=== PATIENT | female | born 1955 | race Caucasian/White ===

== ENCOUNTER 2018-06-08 08:10 | Emergency (ER) | payer OTHER, SELFPAY ==
[2018-06-08 08:13] VITALS: BP 112/47; PULSE 86; RESP 18; TEMP 36.4; O2SAT 99
--- NOTE | 2018-06-08 08:26 | W.ED.GENAD ---
Discharge Plan Disposition Patient Disposition: HOME Condition: Good Discharge Details Chief Complaint: EarProblem Clinical Impression: Acute otitis externa of left ear Primary Care Provider: Ann Chu ED Provider: Damien Shafer Home Meds and New Rx's Prescriptions: New ciprofloxacin-hydrocortisone [Cipro HC] 0.2-1 % drops,suspension 3 drp OT BID Qty: 10 RF: 0 Continue sumatriptan succinate 25 mg tablet 25 mg PO as directed Qty: 12 RF: 2 tolterodine 2 mg capsule,extended release 24hr 2 mg PO DAILY Qty: 30 RF: 4 calcium carbonate-vitamin D3 1 EACH capsule 1 ea PO BID RF: 0 glucosamine [id number] 1 EACH tablet 1 ea PO BID RF: 0 olopatadine [Pataday] 0.2 % drops 1 drp Ophthalmic BID PRNRF: 0 ibuprofen 200 MG tablet 2 cap PO PRN PRNRF: 0 cholecalciferol (vit D3)(bulk) 1,000 GM liquid 1,000 gm Miscellaneous DAILY RF: 0 magnesium 250 MG tablet 250 mg PO DAILY RF: 0 Discharge Instructions Instructions: Otitis Externa (ED) Discharge Data Discharge Physician: Damien Shafer Medical Decision Making Patient comes in with left ear pain and was prescribed abx amoxicillin last week at urgent care and despite this still has discomfort. No fevers, no pain or redness or warmth or swelling over the left mastoid. She is a swimmer. HAs normal exam on the right, normal tm on the left but external auditory is swollen and has pain on exam. Will start antibiotic drops and advised f/u with pcp. No evidence of mastoiditis Differential Diagnosis otitis externa, aom HPI General Mode of arrival: ambulatory. Date/Time Provider Initiated Documentation: 06/08/18 08:22. Limitations to Documentation: no limitations. History of Present Illness 62 year old F presents to the emergency department with the chief complaint of left ear pain, described as moderate, with intensity rated at 5. Quality is described as aching, Patient reports no radiation. Patient started experiencing this week(s) (1) and it has been constant. No relieving factors improve symptom(s), No exacerbating factors reported . Patient notes no other symptoms.. Related Data Home Medications Medication Instructions Recorded Confirmed ibuprofen 2 cap PO PRN PRN 05/29/13 06/08/18 calcium carbonate-vitamin D3 1 ea PO BID 03/20/16 06/08/18 glucosamine [id number] 1 ea PO BID 03/20/16 06/08/18 cholecalciferol (vit D3)(bulk) 1,000 gm MISCELLANEOUS DAILY 04/24/16 06/08/18 magnesium 250 mg PO DAILY 04/18/17 06/08/18 olopatadine 0.2 % eye drops 1 drp OPHTHALMIC BID PRN drp 05/20/18 06/08/18 sumatriptan 25 mg tablet 25 mg PO as directed #12 tab-cap 05/20/18 06/08/18 tolterodine ER 2 mg 2 mg PO DAILY #30 cap 05/20/18 06/08/18 capsule,extended release 24 hr ciprofloxacin-hydrocortisone 3 drp OT BID #10 ml 06/08/18 [Cipro HC] Previous Rx's Medication Instructions Recorded sumatriptan 25 mg tablet 25 mg PO as directed #12 tab-cap 05/20/18 tolterodine ER 2 mg 2 mg PO DAILY #30 cap 05/20/18 capsule,extended release 24 hr ciprofloxacin-hydrocortisone 3 drp OT BID #10 ml 06/08/18 [Cipro HC] Allergies Allergy/AdvReac Type Severity Reaction Status Date / Time alcohol Allergy Unknown Unverified 06/08/18 08:23 General Stated Complaint: EarProblem GAEL: 4 Review of Systems Review of Systems All systems reviewed & are unremarkable except as noted in HPI and below Constitutional Denies chills, Denies fever(s) and Denies weakness Eyes Denies loss of vision ENT Denies change in voice Cardiovascular Denies chest pain and Denies dyspnea Respiratory Denies dyspnea Gastrointestinal Denies abdominal pain, Denies nausea and Denies vomiting Genitourinary Denies dysuria Musculoskeletal Denies joint swelling Integumentary/Breasts Denies rash Neurologic Denies loss of vision and Denies weakness Psychiatric Denies depression PFSH Family History Mother Essential hypertension Heart disease Hyperlipidemia Father Essential hypertension Heart disease Diabetes Skin cancer Sister Skin cancer Sister Skin cancer Maternal Grandfather Heart disease Paternal Grandfather Heart disease Maternal Grandmother Heart disease Paternal Grandmother Liver cancer FAMILY HISTORY Osteoporosis Heart disease Daughter No problems noted. Daughter No problems noted. Medical History Cellulitis of both lower extremities Ocular herpes Urinary incontinence Social History household members: spouse current occupational status: employed 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 frequency: daily duration: 30-45 minutes/day Smoking/Tobacco Use Status: Never alcohol intake: never substance use type: does not use saúl/baptism: JUDIAISM special saúl needs: No Surgical History Colonoscopy - MAC (04/20/17) Removal of L eye Tonsillectomy and adenoidectomy Exam Const General: no acute distress Orientation: alert HENMT Head: normal to inspection Ears: external ears normal General nose exam: external nose normal Mouth: moist mucous membranes Eyes General: appearance normal, both eyes and all related structures Neck Neck: normal visual inspection Resp Effort & Inspection: normal respiratory effort and able to speak in complete sentences Cardio Rate: regular rate Skin General skin exam: no rashes or lesions noted Neuro General: alert and oriented x3 Extrem General: normal to inspection Psych Mental Status: mental status grossly normal Course Vital Signs Temperature 36.4 C L 06/08/18 08:13 Pulse 86 06/08/18 08:13 Respiratory Rate 18 06/08/18 08:13 Blood Pressure 112/47 L 06/08/18 08:13 Pulse Oximetry 99 06/08/18 08:13 Temperature 36.4 C L 06/08/18 08:13 Temperature Source Temporal Artery Scan 06/08/18 08:13 Pulse 86 06/08/18 08:13 Respiratory Rate 18 06/08/18 08:13 Respiratory Effort Non-Labored 06/08/18 08:21 Blood Pressure 112/47 L 06/08/18 08:13 Pulse Oximetry 99 06/08/18 08:13 Oxygen Delivery Method Room Air 06/08/18 08:13 Oxygen Flow Rate 0 06/08/18 08:13 Pain Level 5 06/08/18 08:22
--- NOTE | 2018-06-08 08:30 | ED.GENADUL_ITS ---
Discharge Plan Disposition Patient Disposition: HOME Condition: Good Discharge Details Chief Complaint: EarProblem Clinical Impression: Acute otitis externa of left ear Primary Care Provider: Ann Chu ED Provider: Damien Shafer Home Meds and New Rx's Prescriptions: New ciprofloxacin-hydrocortisone [Cipro HC] 0.2-1 % drops,suspension 3 drp OT BID Qty: 10 RF: 0 Continue sumatriptan succinate 25 mg tablet 25 mg PO as directed Qty: 12 RF: 2 tolterodine 2 mg capsule,extended release 24hr 2 mg PO DAILY Qty: 30 RF: 4 calcium carbonate-vitamin D3 1 EACH capsule 1 ea PO BID RF: 0 glucosamine [id number] 1 EACH tablet 1 ea PO BID RF: 0 olopatadine [Pataday] 0.2 % drops 1 drp Ophthalmic BID PRNRF: 0 ibuprofen 200 MG tablet 2 cap PO PRN PRNRF: 0 cholecalciferol (vit D3)(bulk) 1,000 GM liquid 1,000 gm Miscellaneous DAILY RF: 0 magnesium 250 MG tablet 250 mg PO DAILY RF: 0 Discharge Instructions Instructions: Otitis Externa (ED) Discharge Data Discharge Physician: Damien Shafer Medical Decision Making Patient comes in with left ear pain and was prescribed abx amoxicillin last week at urgent care and despite this still has discomfort. No fevers, no pain or redness or warmth or swelling over the left mastoid. She is a swimmer. HAs normal exam on the right, normal tm on the left but external auditory is swollen and has pain on exam. Will start antibiotic drops and advised f/u with pcp. No evidence of mastoiditis Differential Diagnosis otitis externa, aom HPI General Mode of arrival: ambulatory . Date/Time Provider Initiated Documentation: 06/08/18 08:22 . Limitations to Documentation: no limitations . History of Present Illness 62 year old F presents to the emergency department with the chief complaint of left ear pain, described as moderate, with intensity rated at 5. Quality is described as aching, Patient reports no radiation. Patient started experiencing this week(s) (1) and it has been constant. No relieving factors improve symptom(s), No exacerbating factors reported . Patient notes no other symptoms.. Related Data Home Medications Medication Instructions Recorded Confirmed ibuprofen 2 cap PO PRN PRN 05/29/13 06/08/18 calcium carbonate-vitamin D3 1 ea PO BID 03/20/16 06/08/18 glucosamine [id number] 1 ea PO BID 03/20/16 06/08/18 cholecalciferol (vit D3)(bulk) 1,000 gm MISCELLANEOUS DAILY 04/24/16 06/08/18 magnesium 250 mg PO DAILY 04/18/17 06/08/18 olopatadine 0.2 % eye drops 1 drp OPHTHALMIC BID PRN drp 05/20/18 06/08/18 sumatriptan 25 mg tablet 25 mg PO as directed #12 tab-cap 05/20/18 06/08/18 tolterodine ER 2 mg 2 mg PO DAILY #30 cap 05/20/18 06/08/18 capsule,extended release 24 hr ciprofloxacin-hydrocortisone 3 drp OT BID #10 ml 06/08/18 [Cipro HC] Previous Rx's Medication Instructions Recorded sumatriptan 25 mg tablet 25 mg PO as directed #12 tab-cap 05/20/18 tolterodine ER 2 mg 2 mg PO DAILY #30 cap 05/20/18 capsule,extended release 24 hr ciprofloxacin-hydrocortisone 3 drp OT BID #10 ml 06/08/18 [Cipro HC] Allergies Allergy/AdvReac Type Severity Reaction Status Date / Time alcohol Allergy Unknown Unverified 06/08/18 08:23 General Stated Complaint: EarProblem GAEL: 4 Review of Systems Review of Systems All systems reviewed & are unremarkable except as noted in HPI and below Constitutional Denies chills, Denies fever(s) and Denies weakness Eyes Denies loss of vision ENT Denies change in voice Cardiovascular Denies chest pain and Denies dyspnea Respiratory Denies dyspnea Gastrointestinal Denies abdominal pain, Denies nausea and Denies vomiting Genitourinary Denies dysuria Musculoskeletal Denies joint swelling Integumentary/Breasts Denies rash Neurologic Denies loss of vision and Denies weakness Psychiatric Denies depression PFSH Family History Mother Essential hypertension Heart disease Hyperlipidemia Father Essential hypertension Heart disease Diabetes Skin cancer Sister Skin cancer Sister Skin cancer Maternal Grandfather Heart disease Paternal Grandfather Heart disease Maternal Grandmother Heart disease Paternal Grandmother Liver cancer FAMILY HISTORY Osteoporosis Heart disease Daughter No problems noted. Daughter No problems noted. Medical History Cellulitis of both lower extremities Ocular herpes Urinary incontinence Social History household members: spouse current occupational status: employed 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 frequency: daily duration: 30-45 minutes/day Smoking/Tobacco Use Status: Never alcohol intake: never substance use type: does not use saúl/adventist: JUDIAISM special saúl needs: No Surgical History Colonoscopy - MAC (04/20/17) Removal of L eye Tonsillectomy and adenoidectomy Exam Const General: no acute distress Orientation: alert HENMT Head: normal to inspection Ears: external ears normal General nose exam: external nose normal Mouth: moist mucous membranes Eyes General: appearance normal, both eyes and all related structures Neck Neck: normal visual inspection Resp Effort & Inspection: normal respiratory effort and able to speak in complete sentences Cardio Rate: regular rate Skin General skin exam: no rashes or lesions noted Neuro General: alert and oriented x3 Extrem General: normal to inspection Psych Mental Status: mental status grossly normal Course Vital Signs Temperature 36.4 C L 06/08/18 08:13 Pulse 86 06/08/18 08:13 Respiratory Rate 18 06/08/18 08:13 Blood Pressure 112/47 L 06/08/18 08:13 Pulse Oximetry 99 06/08/18 08:13 Temperature 36.4 C L 06/08/18 08:13 Temperature Source Temporal Artery Scan 06/08/18 08:13 Pulse 86 06/08/18 08:13 Respiratory Rate 18 06/08/18 08:13 Respiratory Effort Non-Labored 06/08/18 08:21 Blood Pressure 112/47 L 06/08/18 08:13 Pulse Oximetry 99 06/08/18 08:13 Oxygen Delivery Method Room Air 06/08/18 08:13 Oxygen Flow Rate 0 06/08/18 08:13 Pain Level 5 06/08/18 08:22
== END 2018-06-08 08:36 | disposition home or self-care (01) ==
PROVIDERS: Emergency Provider Emergency Medicine; PCP Family Medicine
DX: H60.392 Other infective otitis externa, left ear (principal)
CPT/HCPCS: 99283

== ENCOUNTER 2018-06-18 01:40 | Outpatient (CLI) | payer OTHER, SELFPAY ==
[2018-06-18 07:32] LABS: HCT 38.9 % (36.0-46.0); HGB 12.5 g/dL (12.0-15.5); Mean Corp. HGB Concentration 32.1 g/dL (32.0-36.0); Mean Corpuscular Hemoglobin 30.3 pg (27.0-33.0); Mean Corpuscular Volume 94.4 fL (80-95); Mean Platelet Volume 10.3 fL (8.0-11.0); Platelet Count 251 x1000/uL (130-400); RBC 4.12 m/cumm (4.00-5.20); RBC Distribution Width 12.6 % (11.7-14.6); White Blood Cell Count 5.86 k/cumm (4.4-10.8)
[2018-06-18 08:27] LABS: Iron 84 ug/dL (50-175)
[2018-06-18 08:39] LABS: ALT 19 U/L (12-78); AST 13 U/L (15-37); Albumin 3.6 g/dL (3.4-5.0); Alkaline Phosphatase 57 U/L (46-116); Anion Gap 8.6 mmol/L (3-11); BUN 13 mg/dL (7-18); Bilirubin, Total 1.1 mg/dL (0.2-1.0); CO2 29.4 mmol/L (21.0-32.0); CREATININE 0.67 mg/dL (0.55-1.02); Calcium 8.8 mg/dL (8.5-10.1); Chloride 104 mmol/L (98-107); Glucose 87 mg/dL (70-100); Potassium 3.8 mmol/L (3.5-5.1); Sodium 142 mmol/L (136-145); TSH 2.04 uIU/mL (0.358-3.74); Total Protein 6.4 g/dL (6.4-8.2)
[2018-06-19 13:07] LABS: Cholesterol 175 mg/dL (50-200); HDL Cholesterol 56 mg/dL (40-60); LDL CHOLESTEROL 115 mg/dL (<100); Triglyceride 54 mg/dL (30-150)
== END 2018-06-18 02:00 ==
PROVIDERS: PCP Family Medicine; Visit Provider Family Medicine
DX: I49.9 Cardiac arrhythmia, unspecified (principal); Z86.2 Personal history of diseases of the blood and blood-forming organs and certain disorders involving the immune mechanism; Z13.220 Encounter for screening for lipoid disorders
CPT/HCPCS: 36415; 80053; 80061; 83721; 85027; 83540; 84443

== ENCOUNTER 2018-06-25 00:42 | Outpatient (CLI) | payer OTHER, SELFPAY ==
--- NOTE | 2018-06-25 08:00 | DI.MAMMO_ITS ---
SYMPTOM/DIAGNOSIS: SCREENING, Z12.31 MAMMOGRAMS: Mammograms were interpreted according to the usual protocol including computer analysis with CAD system, tomosynthesis and C view imaging. Comparison is made with prior examinations. Breast density, category C. No suspicious masses or microcalcifications are seen. There has been no significant change compared to the prior examination. The asymmetric breast tissue in the upper outer quadrant of the right breast appears stable. The skin and axilla are unremarkable. IMPRESSION: No evidence for malignancy. Yearly mammography is recommended. Category 1. MQSA ASSESSMENT OF FINDINGS: Negative. Category 1. Patient will receive a letter notifying them of these results. Bi-RADS category C. The breasts are heterogeneously dense, which may obscure small masses.
== END 2018-06-25 01:02 ==
PROVIDERS: PCP Family Medicine; Visit Provider Family Medicine
DX: Z12.31 Encounter for screening mammogram for malignant neoplasm of breast (principal)
CPT/HCPCS: 77063; 77067

== ENCOUNTER 2018-07-16 02:05 | Outpatient (CLI) | payer OTHER, SELFPAY ==
--- NOTE | 2018-08-14 15:45 | ZIOP_ITS ---
ZIO PATCH REPORT DATE OF READING: August 14, 2018 STUDY INDICATION: Palpitations. REQUESTING PROVIDER: Patrick Rangel FINDINGS: The patient was monitored for 13 days and 20 hours. The predominant underlying rhythm was sinus rhythm. Average heart rate in sinus rhythm 76 beats per minute, range of 46-148 beats per minute. There was rare supraventricular ectopy. The patient was in atrial fibrillation for less than 1% of the time. Average heart rate in atrial fibrillation 146 beats per minute, range 100-195 beats per minute. The longest episode lasted 60 minutes and 11 seconds, with an average heart rate of 144 beats per minute. There were 28 episodes of supraventricular tachycardia most likely resembling bursts of atrial fibrillation. Average heart rate 142 beats per minute, range 79-197 beats per minute. The longest episode lasted 12 beats, with an average heart rate of 170 beats per minute. There was occasional ventricular ectopy, 1.1% PVCs. There were three ventricular runs most likely resembling atrial fibrillation with aberrancy. Average heart rate 118 beats per minute, range of 74-184 beats per minute. The longest episode lasted 7 beats, with an average heart rate of 91 beats per minute. There were no pauses greater than 3 seconds. There was no high-degree heart block. There were two patient events; both events correlated with PVCs. FINAL INTERPRETATION: Paroxysmal atrial fibrillation with rapid ventricular response, asymptomatic.
== END 2018-07-16 02:25 ==
PROVIDERS: PCP Family Medicine; Visit Provider Family Medicine
DX: R00.2 Palpitations (principal); I48.0 Paroxysmal atrial fibrillation; I47.2 Ventricular tachycardia
CPT/HCPCS: 93225

== ENCOUNTER 2018-09-11 19:30 | Emergency (ER) | payer OTHER, SELFPAY ==
[2018-09-11 19:32] VITALS: BP 127/59; PULSE 80; RESP 20; TEMP 36.5; O2SAT 99
--- NOTE | 2018-09-11 19:32 | DI.RAD_ITS ---
SYMPTOM/DIAGNOSIS: CHEST PAIN PA AND LATERAL CHEST: The heart is normal in size. The lungs are clear. The mediastinal structures and pleura appear intact. CONCLUSION: Normal chest. No evidence of acute cardiopulmonary disease.
--- NOTE | 2018-09-11 19:33 | W.ED.GENAD ---
Discharge Plan Disposition Patient Disposition: HOME Condition: Good Discharge Details Chief Complaint: Chest Pain Clinical Impression: Chest pain Primary Care Provider: Ann Chu ED Provider: Eileen Melissa Home Meds and New Rx's Prescriptions: Continued sumatriptan succinate 25 mg tablet 25 mg PO as directed Qty: 12 RF: 2 tolterodine 2 mg capsule,extended release 24hr 2 mg PO DAILY Qty: 30 RF: 4 fluticasone 50 mcg/actuation spray,suspension 2 spray AURE DAILY PRN (Reason: ear congestion) Qty: 15.8 RF: 0 calcium carbonate-vitamin D3 1 EACH capsule 1 ea PO BID RF: 0 glucosamine [id number] 1 EACH tablet 1 ea PO BID RF: 0 olopatadine [Pataday] 0.2 % drops 1 drp Ophthalmic BID PRNRF: 0 ibuprofen 200 MG tablet 2 cap PO PRN PRNRF: 0 cholecalciferol (vit D3)(bulk) 1,000 GM liquid 1,000 gm Miscellaneous DAILY RF: 0 Cipro HC 0.2-1 % drops,suspension 3 drp OT BID Qty: 10 RF: 0 magnesium 250 MG tablet 250 mg PO DAILY RF: 0 Discharge Instructions Instructions: Chest Pain (ED) Additional Instructions: Encourage hydration. Cut back on caffeine. Begin daily aspirin. Please keep upcoming appointment with primary care next week. If you develop increased chest pain, exertional chest pain, shortness of breath or other new/worsening symptoms please seek care urgently once again. Referrals: Ann Chu MD [Primary Care Provider] - Discharge Data Discharge Date/Time-TO BE ENTERED AT DEPARTURE: 09/11/18 23:53 Medical Decision Making <AUSTIN Arvizu - Last Filed: 09/12/18 08:03> Patient is a 63 year old female presenting today with c/c of chest pressure. States that this pressure has been intermittent for the past 2 days. Initially she associated this with muscle strain from yoga vs. heart burn. However, she states that now the pain does not feel like this. Also endorsing feel that heart is racing intermittently. Denies SOB. No recent illness, no fevers/chills or cough. No personal history of heart disease. She reprots she was seen by her PCP a few months ago and there was concern for murmur vs. irregular rhythm. She had an echo completed last year and finished zio patch <2 months ago. Family history of heart disease, she reports primarily concerning for atrial fibrillation. Denies radiating pain, no N/V, no abdominal pain. On exam, patient is resting comfortably, no distress walking into the department. NSR with no murmurs, rubs or gallops noted. Lungs cler. Abdomen is soft and nontender. HR 80. Patient reports she feels that she is having racing heart at this time, no abnormalities noted at this time to suggest irregular rhythm. EKG reviewed by Dr. Pedroza, she advises no acute abnormalities noted, no signs of ischemia. NSR. Reviewed results of holter: Recent results of holter monitor as interpretted by Dr. Lan: FINDINGS: The patient was monitored for 13 days and 20 hours. The predominant underlying rhythm was sinus rhythm. Average heart rate in sinus rhythm 76 beats per minute, range of 46-148 beats per minute. There was rare supraventricular ectopy. The patient was in atrial fibrillation for less than 1% of the time. Average heart rate in atrial fibrillation 146 beats per minute, range 100-195 beats per minute. The longest episode lasted 60 minutes and 11 seconds, with an average heart rate of 144 beats per minute. There were 28 episodes of supraventricular tachycardia most likely resembling bursts of atrial fibrillation. Average heart rate 142 beats per minute, range 79-197 beats per minute. The longest episode lasted 12 beats, with an average heart rate of 170 beats per minute. There was occasional ventricular ectopy, 1.1% PVCs. There were three ventricular runs most likely resembling atrial fibrillation with aberrancy. Average heart rate 118 beats per minute, range of 74-184 beats per minute. The longest episode lasted 7 beats, with an average heart rate of 91 beats per minute. There were no pauses greater than 3 seconds. There was no high-degree heart block. There were two patient events; both events correlated with PVCs. FINAL INTERPRETATION: Paroxysmal atrial fibrillation with rapid ventricular response, asymptomatic Echo dated 06/19/[address] Lan: Summary: 1. Left ventricle: The cavity size was normal. Wall thickness was normal. Systolic function was normal. The estimated ejection fraction was 55-60%. Wall motion was normal; there were no regional wall motion abnormalities. 2. Right ventricle: The cavity size was normal. Wall thickness was normal. Systolic function was normal. Discussed findings of the Holter with the patient, she reports that she has appointment with PCP next week to discuss this further. She reports that she has family history of atrial fibrillation. [id number] score 1. HAS BLED score 0. Discussed this with the patient. We discussed risks/benefits at length of anticoagulation. She was in atrial fibrillation <1% of the time she was on the monitor. At this point, she prefers no anticoagulation. She is agreement to begin ASA. Has appointment with PCP next week and will discuss this further with them at that time. Chest XR reviewed by radiologist: FINDINGS: Lungs: Unremarkable. No consolidation. Pleural space: Unremarkable. No pleural effusion. No pneumothorax. Heart/Mediastinum: Unremarkable. No cardiomegaly. Bones/joints: Degenerative changes of the bilateral a.c. joints and thoracic spine noted. No acute skeletal findings otherwise. IMPRESSION: Negative for acute thoracic pathology. Labs are reassurring, no acute abnormalities. Troponin <0.02. As pain has been intermittent, will obtain 3 hour troponin and repeat EKG at that time. At the end of my shift, care transitioned to Dr. Gamez with repeat troponin pending. Patient has appointment with PCP next week. As discussed above, if repeat troponin and EKG remain without abnromality, patient will begin daily aspirin. She will discuss repeat Holter vs. zio with primary care. She will contact primary care tomorrow to discuss current complaints. Strict return precautions given. <Darryl Gamez, DO - Last Filed: 09/11/18 23:46> EKG 22: 15 Rate 64, sinus rhythm, intervals normal, no ST elevations or depressions, no T wave inversions. No evidence of epsilon wave, delta wave, or Wellen syndrome. Normal EKG. The case was signed out to me my my colleague Eileen neely. We are pending a repeat troponin at that time. Repeat troponin has returned and is negative. Patient signs and symptoms at this time are clinically inconsistent with acs. She has no evidence of A. fib on EKG. Practitioners nicole have discussed with her potential anticoagulation and beta-jose g administration, and she is requesting to hold off on this but will be taking a daily aspirin. We discussed with the patient the importance of close follow-up with her PCP. I have extensively reviewed the treatment plan and discharge instructions with the patient and their family. I have addressed all patient concerns at this time. The patient and family was made aware of what symptoms to monitor for that would warrant a return to the emergency department. Discussed the plan with the patient and family, they demonstrate verbal understanding and agreement with our assessment and plan at this time. HPI <AUSTIN Arvizu - Last Filed: 09/12/18 08:03> General Mode of arrival: ambulatory. Date/Time Provider Initiated Documentation: 09/11/18 19:32. Limitations to Documentation: no limitations. Information obtained by: patient. History of Present Illness 63 year old F presents to the emergency department with the chief complaint of chest pressure, described as mild, Quality is described as other (pressure), and is localized to the chest. Patient reports no radiation. Patient started experiencing this day(s) (2) and it has been intermittent. other things that improve symptom(s), (distraction, such as when at work) No exacerbating factors reported . Patient notes no other symptoms.; denies cough, fever/chills, headaches, loss of appetite, nausea/vomiting, rash and shortness of breath. Patient did receive the following treatments prior to arrival, none Related Data Home Medications Medication Instructions Recorded Confirmed ibuprofen 2 cap PO PRN PRN 05/29/13 09/11/18 calcium carbonate-vitamin D3 1 ea PO BID 03/20/16 09/11/18 glucosamine [id number] 1 ea PO BID 03/20/16 09/11/18 cholecalciferol (vit D3)(bulk) 1,000 gm MISCELLANEOUS DAILY 04/24/16 09/11/18 magnesium 250 mg PO DAILY 04/18/17 09/11/18 olopatadine 0.2 % eye drops 1 drp OPHTHALMIC BID PRN drp 05/20/18 09/11/18 sumatriptan 25 mg tablet 25 mg PO as directed #12 tab-cap 05/20/18 09/11/18 tolterodine ER 2 mg 2 mg PO DAILY #30 cap 05/20/18 09/11/18 capsule,extended release 24 hr Cipro HC 3 drp OT BID #10 ml 06/08/18 09/11/18 fluticasone 50 mcg/actuation nasal 2 spray AURE DAILY PRN #15.8 gm 06/12/18 09/11/18 spray,suspension Previous Rx's Medication Instructions Recorded sumatriptan 25 mg tablet 25 mg PO as directed #12 tab-cap 05/20/18 tolterodine ER 2 mg 2 mg PO DAILY #30 cap 05/20/18 capsule,extended release 24 hr Cipro HC 3 drp OT BID #10 ml 06/08/18 fluticasone 50 mcg/actuation nasal 2 spray AURE DAILY PRN #15.8 gm 06/12/18 spray,suspension Allergies Allergy/AdvReac Type Severity Reaction Status Date / Time alcohol Allergy Unknown Unverified 09/11/18 19:54 General GAEL: 4 Review of Systems <AUSTIN Arvizu Last Filed: 09/12/18 08:03> Constitutional Reports as per HPI, Denies chills, Denies fever(s), Denies headache(s), Denies lethargy and Denies poor appetite Eyes Denies change in vision ENT Denies headache(s) Cardiovascular Reports as per HPI, Denies dyspnea and Denies dyspnea on exertion Respiratory Denies dyspnea, Denies dyspnea on exertion and Denies wheezing Gastrointestinal Reports as per HPI, Denies abdominal pain, Denies diarrhea, Denies nausea and Denies vomiting Musculoskeletal Reports as per HPI and Denies back pain Integumentary/Breasts Reports as per HPI and Denies rash Neurologic Denies headache(s) Allergic/Immunologic Denies wheezing PFSH <AUSTIN Arvizu Last Filed: 09/12/18 08:03> Surgical History Colonoscopy - [facility] (04/20/17) Removal of L eye Tonsillectomy and adenoidectomy Social History household members: spouse current occupational status: employed 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 frequency: daily duration: 30-45 minutes/day Smoking/Tobacco Use Status: Never alcohol intake: never substance use type: does not use saúl/confucianist: JUDIAISM special saúl needs: No Exam <AUSTIN Arvizu Last Filed: 09/12/18 08:03> Const General: cooperative, healthy appearing, comfortable, no acute distress and well developed Nutritional Appearance: average body habitus and well nourished Orientation: alert, awake and oriented x3 HENMT Head: normal to inspection Ears: hearing grossly normal bilaterally Mouth: moist mucous membranes Chest Chest: normal inspection of the chest, normal palpation of entire chest wall and no crepitus Resp Effort & Inspection: normal respiratory effort, able to speak in complete sentences and no respiratory distress Auscultation: clear to auscultation bilaterally, no rales, no rhonchi and no wheezes Cardio Rate: regular rate Rhythm: regular rhythm Heart Sounds: S1 normal and S2 normal GI Inspection: normal to inspection, no edema and non-distended Palpation: soft, no hepatosplenomegaly, not firm, no guarding, not rigid and nontender Auscultation: normal bowel sounds Back/Spine/Pelvis Back: no CVA tenderness Thoracic/Lumbar Spine: thoracic and lumbar spine normal to inspection Skin General skin exam: no rashes or lesions noted Trauma: no lacerations or abrasions Neuro General: alert, awake and oriented x3 Cognition: normal cognition Speech: speech normal Gait: normal gait Extrem General: normal to inspection, normal capillary refill, no pedal edema, no calf tenderness and normal gait Psych Appearance: grossly normal and well kempt Mental Status: mental status grossly normal Speech and Movement: speech and movement normal
--- NOTE | 2018-09-11 19:44 | ED.GENADUL_ITS ---
Discharge Plan Disposition Patient Disposition: HOME Condition: Good Discharge Details Chief Complaint: Chest Pain Clinical Impression: Chest pain Primary Care Provider: Ann Chu ED Provider: Eileen Melissa Home Meds and New Rx's Prescriptions: Continued sumatriptan succinate 25 mg tablet 25 mg PO as directed Qty: 12 RF: 2 tolterodine 2 mg capsule,extended release 24hr 2 mg PO DAILY Qty: 30 RF: 4 fluticasone 50 mcg/actuation spray,suspension 2 spray AURE DAILY PRN (Reason: ear congestion) Qty: 15.8 RF: 0 calcium carbonate-vitamin D3 1 EACH capsule 1 ea PO BID RF: 0 glucosamine [id number] 1 EACH tablet 1 ea PO BID RF: 0 olopatadine [Pataday] 0.2 % drops 1 drp Ophthalmic BID PRNRF: 0 ibuprofen 200 MG tablet 2 cap PO PRN PRNRF: 0 cholecalciferol (vit D3)(bulk) 1,000 GM liquid 1,000 gm Miscellaneous DAILY RF: 0 Cipro HC 0.2-1 % drops,suspension 3 drp OT BID Qty: 10 RF: 0 magnesium 250 MG tablet 250 mg PO DAILY RF: 0 Discharge Instructions Instructions: Chest Pain (ED) Additional Instructions: Encourage hydration. Cut back on caffeine. Begin daily aspirin. Please keep upcoming appointment with primary care next week. If you develop increased chest pain, exertional chest pain, shortness of breath or other new/worsening symptoms please seek care urgently once again. Referrals: Ann Chu MD [Primary Care Provider] - Discharge Data Discharge Date/Time-TO BE ENTERED AT DEPARTURE: 09/11/18 23:53 Medical Decision Making <AUSTIN Arvizu - Last Filed: 09/12/18 08:03> Patient is a 63 year old female presenting today with c/c of chest pressure. States that this pressure has been intermittent for the past 2 days. Initially she associated this with muscle strain from yoga vs. heart burn. However, she states that now the pain does not feel like this. Also endorsing feel that heart is racing intermittently. Denies SOB. No recent illness, no fevers/chills or cough. No personal history of heart disease. She reprots she was seen by her PCP a few months ago and there was concern for murmur vs. irregular rhythm. She had an echo completed last year and finished zio patch <2 months ago. Family history of heart disease, she reports primarily concerning for atrial fibrillation. Denies radiating pain, no N/V, no abdominal pain. On exam, patient is resting comfortably, no distress walking into the department. NSR with no murmurs, rubs or gallops noted. Lungs cler. Abdomen is soft and nontender. HR 80. Patient reports she feels that she is having racing heart at this time, no abnormalities noted at this time to suggest irregular rhythm. EKG reviewed by Dr. Pedroza, she advises no acute abnormalities noted, no signs of ischemia. NSR. Reviewed results of holter: Recent results of holter monitor as interpretted by Dr. Lan: FINDINGS: The patient was monitored for 13 days and 20 hours. The predominant underlying rhythm was sinus rhythm. Average heart rate in sinus rhythm 76 beats per minute, range of 46-148 beats per minute. There was rare supraventricular ectopy. The patient was in atrial fibrillation for less than 1% of the time. Average heart rate in atrial fibrillation 146 beats per minute, range 100-195 beats per minute. The longest episode lasted 60 minutes and 11 seconds, with an average heart rate of 144 beats per minute. There were 28 episodes of supraventricular tachycardia most likely resembling bursts of atrial fibrillation. Average heart rate 142 beats per minute, range 79-197 beats per minute. The longest episode lasted 12 beats, with an average heart rate of 170 beats per minute. There was occasional ventricular ectopy, 1.1% PVCs. There were three ventricular runs most likely resembling atrial fibrillation with aberrancy. Average heart rate 118 beats per minute, range of 74-184 beats per minute. The longest episode lasted 7 beats, with an average heart rate of 91 beats per minute. There were no pauses greater than 3 seconds. There was no high-degree heart block. There were two patient events; both events correlated with PVCs. FINAL INTERPRETATION: Paroxysmal atrial fibrillation with rapid ventricular response, asymptomatic Echo dated 06/19/[address] Lan: Summary: 1. Left ventricle: The cavity size was normal. Wall thickness was normal. Systolic function was normal. The estimated ejection fraction was 55-60%. Wall motion was normal; there were no regional wall motion abnormalities. 2. Right ventricle: The cavity size was normal. Wall thickness was normal. Systolic function was normal. Discussed findings of the Holter with the patient, she reports that she has appointment with PCP next week to discuss this further. She reports that she has family history of atrial fibrillation. [id number] score 1. HAS BLED score 0. Discussed this with the patient. We discussed risks/benefits at length of anticoagulation. She was in atrial fibrillation <1% of the time she was on the monitor. At this point, she prefers no anticoagulation. She is agreement to begin ASA. Has appointment with PCP next week and will discuss this further with them at that time. Chest XR reviewed by radiologist: FINDINGS: Lungs: Unremarkable. No consolidation. Pleural space: Unremarkable. No pleural effusion. No pneumothorax. Heart/Mediastinum: Unremarkable. No cardiomegaly. Bones/joints: Degenerative changes of the bilateral a.c. joints and thoracic spine noted. No acute skeletal findings otherwise. IMPRESSION: Negative for acute thoracic pathology. Labs are reassurring, no acute abnormalities. Troponin <0.02. As pain has been intermittent, will obtain 3 hour troponin and repeat EKG at that time. At the end of my shift, care transitioned to Dr. Gamez with repeat troponin pending. Patient has appointment with PCP next week. As discussed above, if repeat troponin and EKG remain without abnromality, patient will begin daily aspirin. She will discuss repeat Holter vs. zio with primary care. She will contact primary care tomorrow to discuss current complaints. Strict return precautions given. <Darryl Gamez, DO - Last Filed: 09/11/18 23:46> EKG 22: 15 Rate 64, sinus rhythm, intervals normal, no ST elevations or depressions, no T wave inversions. No evidence of epsilon wave, delta wave, or Wellen syndrome. Normal EKG. The case was signed out to me my my colleague Eileen neely. We are pending a repeat troponin at that time. Repeat troponin has returned and is negative. Patient signs and symptoms at this time are clinically inconsistent with acs. She has no evidence of A. fib on EKG. Practitioners nicole have discussed with her potential anticoagulation and beta-jose g administration, and she is requesting to hold off on this but will be taking a daily aspirin. We discussed with the patient the importance of close follow-up with her PCP. I have extensively reviewed the treatment plan and discharge instructions with the patient and their family. I have addressed all patient concerns at this time. The patient and family was made aware of what symptoms to monitor for that would warrant a return to the emergency department. Discussed the plan with the patient and family, they demonstrate verbal understanding and agreement with our assessment and plan at this time. HPI <AUSTIN Arvizu - Last Filed: 09/12/18 08:03> General Mode of arrival: ambulatory . Date/Time Provider Initiated Documentation: 09/11/18 19:32 . Limitations to Documentation: no limitations . Information obtained by: patient . History of Present Illness 63 year old F presents to the emergency department with the chief complaint of chest pressure, described as mild, Quality is described as other (pressure), and is localized to the chest. Patient reports no radiation. Patient started experiencing this day(s) (2) and it has been intermittent. other things that improve symptom(s), (distraction, such as when at work) No exacerbating factors reported . Patient notes no other symptoms.; denies cough, fe ena/chills, headaches, loss of appetite, nausea/vomiting, rash and shortness of breath. Patient did receive the following treatments prior to arrival, none Related Data Home Medications Medication Instructions Recorded Confirmed ibuprofen 2 cap PO PRN PRN 05/29/13 09/11/18 calcium carbonate-vitamin D3 1 ea PO BID 03/20/16 09/11/18 glucosamine [id number] 1 ea PO BID 03/20/16 09/11/18 cholecalciferol (vit D3)(bulk) 1,000 gm MISCELLANEOUS DAILY 04/24/16 09/11/18 magnesium 250 mg PO DAILY 04/18/17 09/11/18 olopatadine 0.2 % eye drops 1 drp OPHTHALMIC BID PRN drp 05/20/18 09/11/18 sumatriptan 25 mg tablet 25 mg PO as directed #12 tab-cap 05/20/18 09/11/18 tolterodine ER 2 mg 2 mg PO DAILY #30 cap 05/20/18 09/11/18 capsule,extended release 24 hr Cipro HC 3 drp OT BID #10 ml 06/08/18 09/11/18 fluticasone 50 mcg/actuation nasal 2 spray AURE DAILY PRN #15.8 gm 06/12/18 09/11/18 spray,suspension Previous Rx's Medication Instructions Recorded sumatriptan 25 mg tablet 25 mg PO as directed #12 tab-cap 05/20/18 tolterodine ER 2 mg 2 mg PO DAILY #30 cap 05/20/18 capsule,extended release 24 hr Cipro HC 3 drp OT BID #10 ml 06/08/18 fluticasone 50 mcg/actuation nasal 2 spray AURE DAILY PRN #15.8 gm 06/12/18 spray,suspension Allergies Allergy/AdvReac Type Severity Reaction Status Date / Time alcohol Allergy Unknown Unverified 09/11/18 19:54 General GAEL: 4 Review of Systems <AUSTIN Arvizu Last Filed: 09/12/18 08:03> Constitutional Reports as per HPI, Denies chills, Denies fever(s), Denies headache(s), Denies lethargy and Denies poor appetite Eyes Denies change in vision ENT Denies headache(s) Cardiovascular Reports as per HPI, Denies dyspnea and Denies dyspnea on exertion Respiratory Denies dyspnea, Denies dyspnea on exertion and Denies wheezing Gastrointestinal Reports as per HPI, Denies abdominal pain, Denies diarrhea, Denies nausea and Denies vomiting Musculoskeletal Reports as per HPI and Denies back pain Integumentary/Breasts Reports as per HPI and Denies rash Neurologic Denies headache(s) Allergic/Immunologic Denies wheezing PFSH <AUSTIN Arvizu Last Filed: 09/12/18 08:03> Surgical History Colonoscopy - [facility] – [place] (04/20/17) Removal of L eye Tonsillectomy and adenoidectomy Social History household members: spouse current occupational status: employed 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 frequency: daily duration: 30-45 minutes/day Smoking/Tobacco Use Status: Never alcohol intake: never substance use type: does not use saúl/quaker: JUDIAISM special saúl needs: No Exam <AUSTIN Arvizu Last Filed: 09/12/18 08:03> Const General: cooperative, healthy appearing, comfortable, no acute distress and well developed Nutritional Appearance: average body habitus and well nourished Orientation: alert, awake and oriented x3 HENMT Head: normal to inspection Ears: hearing grossly normal bilaterally Mouth: moist mucous membranes Chest Chest: normal inspection of the chest, normal palpation of entire chest wall and no crepitus Resp Effort & Inspection: normal respiratory effort, able to speak in complete sentences and no respiratory distress Auscultation: clear to auscultation bilaterally, no rales, no rhonchi and no wheezes Cardio Rate: regular rate Rhythm: regular rhythm Heart Sounds: S1 normal and S2 normal GI Inspection: normal to inspection, no edema and non-distended Palpation: soft, no hepatosplenomegaly, not firm, no guarding, not rigid and nontender Auscultation: normal bowel sounds Back/Spine/Pelvis Back: no CVA tenderness Thoracic/Lumbar Spine: thoracic and lumbar spine normal to inspection Skin General skin exam: no rashes or lesions noted Trauma: no lacerations or abrasions Neuro General: alert, awake and oriented x3 Cognition: normal cognition Speech: speech normal Gait: normal gait Extrem General: normal to inspection, normal capillary refill, no pedal edema, no calf tenderness and normal gait Psych Appearance: grossly normal and well kempt Mental Status: mental status grossly normal Speech and Movement: speech and movement normal
[2018-09-11 19:55] VITALS: RESP 18
[2018-09-11 19:59] LABS: Abs Immature Grans 0.01 k/cumm (0.0-0.09); Absolute Basophil Count 0.04 k/cumm (0.0-0.2); Absolute Eosinophil Count 0.07 k/cumm (0.0-0.7); Absolute Lymphocyte Count 1.58 k/cumm (1.2-3.4); Absolute Monocyte Count 0.62 k/cumm (0.11-0.7); Absolute Neutrophil Count 2.83 k/cumm (1.2-6.7); Basophils % 0.8; Eosinophils % 1.4; HCT 39.1 % (36.0-46.0); HGB 12.7 g/dL (12.0-15.5); Immature Grans % 0.2; Lymphocytes % 30.7; Mean Corp. HGB Concentration 32.5 g/dL (32.0-36.0); Mean Corpuscular Hemoglobin 30.7 pg (27.0-33.0); Mean Corpuscular Volume 94.4 fL (80-95); Mean Platelet Volume 10.7 fL (8.0-11.0); Neutrophils % 54.9; Platelet Count 176 x1000/uL (130-400); RBC 4.14 m/cumm (4.00-5.20); RBC Distribution Width 13.3 % (11.7-14.6); White Blood Cell Count 5.15 k/cumm (4.4-10.8)
[2018-09-11 20:15] LABS: PTT Activated 23.2 sec (21.0-31.4); Prothrombin Time 9.8 sec (9.3-11.0)
--- NOTE | 2018-09-11 20:23 | DI.VRAD_ITS ---
EXAM: XR Chest, 2 Views EXAM DATE/TIME: 09/11/2018 7:33 PM CLINICAL HISTORY: 63 years old, female; Pain; Chest pain; Type not specified TECHNIQUE: XR of the chest, 2 views. COMPARISON: No relevant prior studies available. FINDINGS: Lungs: Unremarkable. No consolidation. Pleural space: Unremarkable. No pleural effusion. No pneumothorax. Heart/Mediastinum: Unremarkable. No cardiomegaly. Bones/joints: Degenerative changes of the bilateral a.c. joints and thoracic spine noted. No acute skeletal findings otherwise. IMPRESSION: Negative for acute thoracic pathology. Dictated and Authenticated by: Abdirizak Dockery MD. Ordering:VERONICA Arellano MD
[2018-09-11 20:28] LABS: ALT 19 U/L (12-78); AST 19 U/L (15-37); Albumin 3.7 g/dL (3.4-5.0); Alkaline Phosphatase 61 U/L (46-116); BUN 21 mg/dL (7-18); Bilirubin, Total 0.5 mg/dL (0.2-1.0); CREATININE 0.74 mg/dL (0.55-1.02); Calcium 8.7 mg/dL (8.5-10.1); Chloride 105 mmol/L (98-107); Glucose 103 mg/dL (70-100); Magnesium 2.1 mg/dL (1.8-2.4); Potassium 3.9 mmol/L (3.5-5.1); Sodium 142 mmol/L (136-145); Total Protein 7.1 g/dL (6.4-8.2)
[2018-09-11 20:33] LABS: Troponin I < 0.02 ng/mL (0.00-0.06)
[2018-09-11 22:02] LABS: TSH (W/Ref FT4) 3.16 uIU/mL (0.358-3.74)
[2018-09-11 23:23] LABS: Troponin I < 0.02 ng/mL (0.00-0.06)
== END 2018-09-11 23:53 | disposition home or self-care (01) ==
PROVIDERS: Emergency Provider Physician Assistant; PCP Family Medicine
DX: R07.9 Chest pain, unspecified (principal)
CPT/HCPCS: 36415; 80053; 93005; 99285; 71046; 83735; 84443; 84484; 85025; 85610; 85730; 93010

== ENCOUNTER 2018-12-16 00:22 | Outpatient (CLI) | payer OTHER, SELFPAY ==
--- NOTE | 2018-12-16 08:30 | ETT_ITS ---
*[facility]* *[facility]* [address] [place] [address] Stress Electrocardiography Randy protocol Date of study: 12/16/2018 (Report amended ) *PATIENT PRESENTATION* Height: 172.7cm (68in) Blood Pressure: Weight: 68.6kg (151lb) BSA: 1.82m^2 Referring physician: Frank Lan Ordering physician: Frank Lan Impressions: - Negative stress test after maximal exercise. - Ventricular bigemini (LBBB morphology and inferior axis) in early recovery only. Summary: 1. Stress ECG conclusions: The stress ECG is negative. Em treadmill score: 8. This score predicts a low risk of cardiac events. 2. Stress: The target heart rate was achieved. The heart rate response to stress is normal. There is a normal resting blood pressure with an appropriate response to stress. The patient experienced no chest pain during stress. Exercise capacity is normal for age. 3. Treadmill exercise testing was performed using the Randy protocol. The patient exercised for 7 min 31 sec, to protocol stage 3, to a maximal work rate of 9.4mets. Exercise was terminated due to fatigue. Indication: I48.0, Appropriate Use Criteria: A (Appropriate). History: REASON FOR VISIT: PAROXYSMAL ATRIAL FIBRILLATION. EXERCISE TREADMILL TEST ORDERED TO ASSESS FOR EXERCISE-INDUCED ARRHYTHMIAS AND ISCHEMIA. PT REPORTS INTERMITTENT NON RADIATING CHEST TIGHTNESS THIS STARTED A FEW MONTHS AGO. IT CAN BE TRIGGERED BY THE COLD WEATHER AND WITH WALKING UP HILLS. Risk factors: Family history of coronary artery disease. Cholesterol: 175mg/dl. HDL: 56mg/dl. LDL: 115mg/dl. Triglycerides: 54mg/dl. ALLERGIES: ALCOHOL. MEDICATIONS: CALCIUM CARBONATE-VITAMIN D3 1 TAB TWICE A DAY. CHOLECALCIFEROL VIT D3 1,000 GM DAILY. FLUTICASONE PROPIONATE 2 SPRAYS PRN. GLUCOSAMINE [id number] 1 TAB TWICE A DAY. IBUPROFEN 2 CAPS NEEDED. MAGNESIUM 250 MG DAILY. OLOPATADINE 1 DROP OPHTHALMIC TWICE A DAY PRN. SUMATRIPTAN SUCCINATE 25 MG PRN. TOLTERODINE 2 MG DAILY. Protocol: Randy protocol. Baseline ECG: SINUS RHYTHM. HR 69 BPM. Normal ECG. Stress protocol: + +---+ + + !Stage !HR !BP (mmHg) !Comments ! + +---+ + + !Baseline supine !69 !110/74 (86) ! ! + +---+ + + !Baseline standing !86 !112/74 (87) ! ! + +---+ + + !Stage I; 1.7mph, !124!132/80 (97) ! ! !10degrees; 3 min ! ! ! ! + +---+ + + !Stage II; 2.5mph, !---! !UNABLE TO ADEQUATELY ! !12degrees; 3 min ! ! !ASCULTATE A BP. ! + +---+ + + !Stage III; 3.4mph, !---! !UNABLE TO ADEQUATELY ! !14degrees; 3 min ! ! !ASCULTATE A BP. ! + +---+ + + !Peak stress !150! ! ! + +---+ + + !Recovery; 1 min !148!150/80 (103)! ! + +---+ + + !Recovery; 4 min !90 !140/76 (97) ! ! + +---+ + + !Recovery; 6 min !87 !126/74 (91) ! ! + +---+ + + * Stress results: Maximal heart rate during stress was 150bpm (96% of maximal predicted heart rate). The maximal predicted heart rate was 156bpm. The target heart rate was achieved. The heart rate response to stress is normal. There is a normal resting blood pressure with an appropriate response to stress. The rate-pressure product for the peak heart rate and blood pressure was 46304vo Hg/min. The patient experienced no chest pain during stress. Exercise capacity is normal for age. Stress ECG: TREADMILL PORTION OF STRESS TEST ENDED IN 7 MINUTES & 31 SECONDS DUE TO FATIGUE. NORMAL HEART RATE AND BLOOD PRESSURE RESPONSE TO EXERCISE. MAX HR = 150 % OF TARGET = 96 FREQUENT PVCs. INTERMITTENT VENTRICULAR BIGEMINY NOTED PRIOR TO EXERCISE AND DURING RECOVERY PHASE. APPROXIMATE METS ACHIEVED = 9.39 NO ANGINA NO SIGNIFICANT ST SEGMENT CHANGES ABOVE AVERAGE FUNCTIONAL CAPACITY FOR EXERCISE. The stress ECG is negative. Em treadmill score: 8. This score predicts a low risk of cardiac events. Study data: Frank Lan MD supervised and was readily available during the procedure. This study was interpreted by [facility]. Study status: Routine. Consent: The risks, benefits, and alternatives to the procedure were explained to the patient and informed consent was obtained. Procedure: Initial setup. A baseline ECG was recorded. Surface ECG leads and manual cuff blood pressure measurements were monitored. Heart sounds: Normal. Lung sounds: Normal. Treadmill exercise testing was performed using the Randy protocol. The patient exercised for 7 min 31 sec, to protocol stage 3, to a maximal work rate of 9.4mets. Exercise was terminated due to fatigue. Study completion: The patient tolerated the procedure well and was discharged from the lab. Discharge: The patient left the laboratory in stable condition. Birthdate: Patient birthdate: 1955. Sex: Gender: female. Study date: Study date: 12/16/2018. Study time: 00:01 AM. Signature Documentation: The Stress ECG portion of this study was interpreted by Frank Lan MD. Electronically signed by Frank Lan 12/16/2018 10:51
== END 2018-12-16 00:42 ==
PROVIDERS: PCP Family Medicine; Visit Provider Student in an Organized Health Care Education/Training Program
DX: I48.0 Paroxysmal atrial fibrillation (principal); R07.9 Chest pain, unspecified; Z82.49 Family history of ischemic heart disease and other diseases of the circulatory system
CPT/HCPCS: 93017

== ENCOUNTER 2018-12-23 00:56 | Outpatient (CLI) | payer OTHER, SELFPAY ==
--- NOTE | 2018-12-23 10:20 | MERGE_ITS ---
*[facility]* *[facility]* [address] [place] [address] Date of study: 12/23/2018 Transthoracic Echocardiography M-mode, complete 2D, complete spectral Doppler, and color Doppler *STUDY CONCLUSIONS* Summary: 1. Left ventricle: The cavity size was normal. Systolic function was mildly reduced. The estimated ejection fraction was 45-50%. Moderate hypokinesis of the apical myocardium. Some parameters suggest diastolic dysfunction. There was no evidence of elevated ventricular filling pressure by Doppler parameters. 2. Mitral valve: There was mild regurgitation. 3. Left atrium: The atrium was mildly dilated. 4. Right ventricle: The cavity size was normal. Wall thickness was normal. Systolic function was normal. 5. Atrial septum: The septum bowed from left to right, consistent with increased left atrial pressure. No defect or patent foramen ovale was identified. 6. Tricuspid valve: There was mild-moderate regurgitation. 7. Pulmonary arteries: Pulmonary systolic pressure was in the range of 20mm Hg to 30mm Hg. 8. Inferior vena cava: The vessel was patent and normal in size. The respirophasic diameter changes were in the normal range (greater than or equal to 50%), consistent with normal central venous pressure. *PATIENT PRESENTATION* Height: 172.7cm ((68in) ) S/D Pressure: 117 / 56 Weight: 68.9kg ((151.7lb) ) BSA: 1.82m^2 Test start time: 10:30 AM. Test stop time: 11:30 AM. PERFORMING Unknown ORDERING Frank Lan REFERRING Frank Lan CONSULTING [facility]IST Christina Abreu, RT Pradeep)(CT), RD *PROCEDURE DATA* Procedure information: The patient was identified by two identifiers. This study was interpreted by [facility]. Pertinent images and digital data are archived for permanent storage and are available for subsequent review. Comparison was made to the study of 06/19/2017. Study status: Routine. Transthoracic echocardiography. M-mode, complete 2D, complete spectral Doppler, and color Doppler. A Transthoracic Echocardiogram was performed. Scanning was performed from the parasternal, apical, subcostal, and suprasternal notch acoustic windows. Images were obtained using an [id number] cardiac ultrasound machine. Image quality was good. Study completion: The patient tolerated the procedure well. *CARDIAC ANATOMY* Left ventricle: The cavity size was normal. Systolic function was mildly reduced. The estimated ejection fraction was 45-50%. Regional wall motion abnormalities: Moderate hypokinesis of the apical myocardium. The tissue Doppler parameters were abnormal. Some parameters suggest diastolic dysfunction. There was no evidence of elevated ventricular filling pressure by Doppler parameters. Aortic valve: Trileaflet. Doppler: There was no stenosis. There was no regurgitation. VTI ratio of LVOT to aortic valve: 0.52. Valve area (VTI): 1.8cm^2. Indexed valve area (VTI): 1cm^2/m^2. Peak velocity ratio of LVOT to aortic valve: 0.52. Valve area (Vmax): 1.8cm^2. Indexed valve area (Vmax): 1cm^2/m^2. Mean velocity ratio of LVOT to aortic valve: 0.57. Valve area (Vmean): 2cm^2. Indexed valve area (Vmean): 1.1cm^2/m^2. Mean gradient (S): 4mm Hg. Peak gradient (S): 6.9mm Hg. Aorta: Aortic root: The aortic root was normal in size. Ascending aorta: The ascending aorta was mildly dilated. Mitral valve: Doppler: There was no evidence for stenosis. There was mild regurgitation. Valve area by pressure half-time: 2.8cm^2. Indexed valve area by pressure half-time: 1.5cm^2/m^2. Left atrium: The atrium was mildly dilated. Atrial septum: The septum bowed from left to right, consistent with increased left atrial pressure. No defect or patent foramen ovale was identified. Right ventricle: The cavity size was normal. Wall thickness was normal. Systolic function was normal. Pulmonic valve: Doppler: There was no evidence for stenosis. There was no significant regurgitation. Peak gradient (S): 3.1mm Hg. Tricuspid valve: Doppler: There was mild-moderate regurgitation. Pulmonary artery: Poorly visualized. Pulmonary systolic pressure was in the range of 20mm Hg to 30mm Hg. Right atrium: The atrium was normal in size. Pericardium: There was no pericardial effusion. Systemic veins: Inferior vena cava: Well visualized. The vessel was patent and normal in size. The respirophasic diameter changes were in the normal range (greater than or equal to 50%), consistent with normal central venous pressure. Baseline ECG: Bradycardia. Measurements Left ventricle Value 06/19/2017 Reference LV ID, ED, PLAX 5.3 cm 5.1 3.5 - 6.0 LV ID, ES, PLAX (H) 4.1 cm 3.6 2.1 - 4.0 LV PW thickness, ED, PLAX 0.9 cm 0.9 LV end-diastolic volume, 116 ml 86 1-p A2C LV ejection fraction, 1-p 52 % 52 A2C LV end-diastolic volume, 105 ml 78 1-p A4C LV ejection fraction, 1-p 47 % 50 A4C LV e', lateral 0.037 m/sec LV E/e', lateral 10 LV e', medial 0.04 m/sec LV E/e', medial 9 LV e', average 0.039 m/sec LV E/e', average 9 Ventricular septum Value 06/19/2017 Reference IVS thickness, ED, PLAX 0.8 cm 0.9 LVOT Value 06/19/2017 Reference LVOT ID, A-P 2.1 cm 2.1 LVOT area 3.5 cm^2 3.3 LVOT peak velocity, S 0.69 m/sec 0.76 LVOT mean velocity, S 0.55 m/sec LVOT VTI, S 15.7 cm 16.0 LVOT peak gradient, S 1.9 mm Hg LVOT mean gradient, S 1.3 mm Hg 1.5 Stroke volume (SV), LVOT 54 ml DP Stroke index (SV/bsa), 30 ml/m^2 LVOT DP Aortic valve Value 06/19/2017 Reference Aortic valve peak 1.3 m/sec velocity, S Aortic valve mean 0.96 m/sec velocity, S Aortic valve VTI, S 30.0 cm Aortic mean gradient, S 4 mm Hg 4 Aortic peak gradient, S 6.9 mm Hg 6 VTI ratio, LVOT/AV 0.52 0.62 Aortic valve area, VTI 1.8 cm^2 2.1 Velocity ratio, peak, 0.52 LVOT/AV Aortic valve area, peak 1.8 cm^2 2.1 velocity Velocity ratio, mean, 0.57 LVOT/AV Aortic valve area, mean 2 cm^2 velocity Aortic valve area/bsa, 1.1 cm^2/m^2 mean velocity Aorta Value 06/19/2017 Reference Aortic root ID, ED 3.0 cm 3.0 Ascending aorta ID, A-P, S 2.9 cm 2.8 Left atrium Value 06/19/2017 Reference LA ID, A-P, ES 2.7 cm LA ID/bsa, A-P 1.5 cm/m^2 <=2.2 LA area, ES, A4C 21.3 cm^2 15 8.8 - 23.4 LA area, ES, A2C 21 cm^2 LA volume/bsa, ES, 1-p A4C 40 ml/m^2 23 LA volume, ES, 2-p 60 ml LA volume/bsa, ES, 2-p 33 ml/m^2 LA/aortic root ratio 0.9 0.98 Mitral valve Value 06/19/2017 Reference Mitral E-wave peak 0.36 m/sec 0.31 velocity Mitral A-wave peak 0.64 m/sec 0.4 velocity Mitral deceleration time (H) 274 ms 150 - 230 Mitral pressure half-time 80 ms 114 Mitral E/A ratio, peak 0.57 0.77 Mitral valve area, PHT, DP 2.8 cm^2 1.9 Pulmonary veins Value 06/19/2017 Reference Pulmonary vein peak 0.54 m/sec 0.68 velocity, S Pulmonary vein peak 0.44 m/sec 0.65 velocity, D Pulmonary vein velocity 1.21 1.05 ratio, peak, S/D Pulmonary vein A-wave 0.39 m/sec 0.78 reversal peak velocity Tricuspid valve Value 06/19/2017 Reference Tricuspid regurg peak 2.2 m/sec 2.7 velocity Tricuspid peak RV-RA 20.2 mm Hg 28.2 gradient Right atrium Value 06/19/2017 Reference RA area, ES, A4C 14.1 cm^2 12.2 8.3 - 19.5 Pulmonic valve Value 06/19/2017 Reference Pulmonic peak gradient, S 3.1 mm Hg 1.5 Legend: (L) and (H) vishnu values outside specified reference range. I have personally reviewed the images and have reviewed and edited the reported findings. Electronically signed by Damien Rolon MD 12/23/2018 13:55
== END 2018-12-23 01:16 ==
PROVIDERS: PCP Family Medicine; Visit Provider Student in an Organized Health Care Education/Training Program
DX: I48.0 Paroxysmal atrial fibrillation (principal); I50.1 Left ventricular failure, unspecified; I08.1 Rheumatic disorders of both mitral and tricuspid valves; R07.9 Chest pain, unspecified
CPT/HCPCS: 93306

== ENCOUNTER 2019-02-14 12:45 | Outpatient (CLI) | payer OTHER, SELFPAY ==
[2019-02-14 14:04] LABS: Abs Immature Grans 0.01 k/cumm (0.0-0.09); Absolute Basophil Count 0.03 k/cumm (0.0-0.2); Absolute Eosinophil Count 0.12 k/cumm (0.0-0.7); Absolute Lymphocyte Count 1.47 k/cumm (1.2-3.4); Absolute Monocyte Count 0.52 k/cumm (0.11-0.7); Absolute Neutrophil Count 5.46 k/cumm (1.2-6.7); Basophils % 0.4; Eosinophils % 1.6; HCT 38.5 % (36.0-46.0); HGB 12.7 g/dL (12.0-15.5); Immature Grans % 0.1; Lymphocytes % 19.3; Mean Corpuscular Volume 93.9 fL (80-95); Mean Platelet Volume 10.9 fL (8.0-11.0); Monocytes % 6.8; Neutrophils % 71.8; Platelet Count 213 x1000/uL (130-400); RBC Distribution Width 12.7 % (11.7-14.6); White Blood Cell Count 7.61 k/cumm (4.4-10.8)
[2019-02-14 14:35] LABS: ALT 17 U/L (12-78); AST 8 U/L (15-37); Albumin 3.5 g/dL (3.4-5.0); Alkaline Phosphatase 57 U/L (46-116); Anion Gap 8.1 mmol/L (3-11); BUN 20 mg/dL (7-18); Bilirubin, Total 0.7 mg/dL (0.2-1.0); CO2 28.9 mmol/L (21.0-32.0); CREATININE 0.77 mg/dL (0.55-1.02); Calcium 8.7 mg/dL (8.5-10.1); Chloride 107 mmol/L (98-107); Glucose 106 mg/dL (70-100); Potassium 4.1 mmol/L (3.5-5.1); Sodium 144 mmol/L (136-145); Total Protein 6.4 g/dL (6.4-8.2)
[2019-02-17 13:21] LABS: Lyme Ab w Rflx to Lyme Confirm Negative
== END 2019-02-14 13:05 ==
PROVIDERS: PCP Family Medicine; Visit Provider Family Medicine
DX: R53.83 Other fatigue (principal)
CPT/HCPCS: 36415; 80053; 85025; 86140; 86618

== ENCOUNTER 2019-08-13 15:14 | Emergency (ER) | payer OTHER, SELFPAY ==
[2019-08-13] VITALS (23 sets, daily range): BP systolic 96–113; BP diastolic 29–54; PULSE 85–97; RESP 11–25; TEMP 38.3; O2SAT 93–100
--- NOTE | 2019-08-13 15:41 | W.ED.GENAD ---
Discharge Plan Disposition Patient Disposition: HOME Condition: Improving Discharge Details Chief Complaint: Dizzy/Sync Clinical Impression: Cellulitis of leg, right Primary Care Provider: Ann Chu ED Provider: Lucio Junior Home Meds and New Rx's Prescriptions: New amoxicillin-pot clavulanate 875-125 mg tablet 1 tab PO BID 9 Days Qty: 18 RF: 0 No Action bisoprolol fumarate 5 mg tablet 2.5 mg PO DAILY Qty: 30 RF: 11 tolterodine 2 mg capsule,extended release 24hr 2 mg PO DAILY Qty: 30 RF: 6 calcium carbonate-vitamin D3 1 EACH capsule 1 ea PO BID RF: 0 glucosamine [id number] 1 EACH tablet 1 ea PO BID RF: 0 olopatadine [Pataday] 0.2 % drops 1 drp Ophthalmic BID PRNRF: 0 sumatriptan succinate 25 mg tablet 25 mg PO as directed Qty: 12 RF: 2 ibuprofen 200 MG tablet 2 cap PO PRN PRNRF: 0 cholecalciferol (vit D3)(bulk) 1,000 GM liquid 1,000 gm Miscellaneous DAILY RF: 0 Discharge Instructions Instructions: Cellulitis (ED) Additional Instructions: Please take Augmentin as prescribed. Next dose will be this evening at approximately 11 PM. Then begin twice daily dosing morning and evening starting tomorrow. I recommend that you take khbe-tlq-zkymtae probiotic or live culture yogurt once a day during the middle of the day while on this antibiotic. Continue all regularly prescribed medications. Return for progressive rash, feeling worse, or any other acute concerns. Follow-up with regular doctor in clinic if not improving in 3 days time. Medical Decision Making 63-year-old female presents with her family. She woke feeling normal this morning and then fairly abruptly over hours time developed subjective fever, malaise, lightheadedness without syncope. She states she had a history of frequent recurring cellulitis lower extremity and noticed after triage that she is developed warmth and erythema of the right leg. Most consistent with acute recurrence of lower extremity cellulitis. She arrives with a temperature of 38.3, pulse 97, blood pressure 102/47. Laboratories including blood culture obtained. Patient given fluids, antipyretic. Laboratory analysis notable for a white blood cell count of 12.9, hematocrit 36, platelets 201. Chemistries reassuring, note of total bili 1.2, normal AST and ALT. Blood culture was obtained. After 1 L of fluid, 3 g of Unasyn, the patient is improving and her pulse is corrected down to the mid 80s. She feels subjectively improved. I will place her on Augmentin. She understands homecare as well as indications for reevaluation. She is stable and improving. ECG Data Attestation: I personally reviewed and interpreted this ECG (s) as follows: Interpretation: Normal sinus rhythm, rate of 91, the QRS is narrow, there is no ST segment elevation, unremarkable intervals HPI General Mode of arrival: ambulatory. Date/Time Provider Initiated Documentation: 08/13/19 15:16. Limitations to Documentation: no limitations. Information obtained by: patient and family. History of Present Illness 63 year old F presents to the emergency department with the chief complaint of Fever, do not feel well, history cellulitis, Quality is described as constant, and is localized to the right and lower extremity. Patient started experiencing this hour(s) and it has been constant. No relieving factors improve symptom(s), No exacerbating factors reported . Patient notes fever/chills, loss of appetite and malaise; denies cough, shortness of breath and syncope. Patient did receive the following treatments prior to arrival, none Related Data Home Medications Medication Instructions Recorded Confirmed ibuprofen 2 cap PO PRN PRN 05/29/13 08/13/19 calcium carbonate-vitamin D3 1 ea PO BID 03/20/16 08/13/19 glucosamine [id number] 1 ea PO BID 03/20/16 08/13/19 cholecalciferol (vit D3)(bulk) 1,000 gm MISCELLANEOUS DAILY 04/24/16 08/13/19 olopatadine 0.2 % eye drops 1 drp OPHTHALMIC BID PRN drp 05/20/18 08/13/19 bisoprolol fumarate 5 mg tablet 2.5 mg PO DAILY #30 tab 01/15/19 08/13/19 tolterodine 2 mg capsule,extended 2 mg PO DAILY #30 cap 05/25/19 08/13/19 release 24 hr sumatriptan succinate 25 mg tablet 25 mg PO as directed #12 tab-cap 08/08/19 08/13/19 amoxicillin-pot clavulanate 1 tab PO BID 9 Days #18 tab 08/13/19 Previous Rx's Medication Instructions Recorded bisoprolol fumarate 5 mg tablet 2.5 mg PO DAILY #30 tab 01/15/19 tolterodine 2 mg capsule,extended 2 mg PO DAILY #30 cap 05/25/19 release 24 hr sumatriptan succinate 25 mg tablet 25 mg PO as directed #12 tab-cap 08/08/19 amoxicillin-pot clavulanate 1 tab PO BID 9 Days #18 tab 08/13/19 Allergies Allergy/AdvReac Type Severity Reaction Status Date / Time alcohol Allergy Unknown Unverified 08/13/19 15:29 General Stated Complaint: Dizzy/Sync GAEL: 3 Review of Systems Narrative: 6 systems reviewed and otherwise negative [facility] Medical History Anemia (Chronic) Arrhythmia (Acute) Cellulitis of both lower extremities 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 no change with PT or with ring pessary with support. Surgical History Colonoscopy - MAC (04/20/17) Removal of L eye 10/2014. s/p corneal perforation. Tonsillectomy and adenoidectomy Family History (Updated 05/22/19 @ 10:09 by Alirio Go) Mother Essential hypertension Heart disease Hyperlipidemia Father , age 90 Essential hypertension Heart disease Diabetes Skin cancer Sister Skin cancer Hypertension Sister Skin cancer Heart disease Maternal Grandfather Heart disease Paternal Grandfather Heart disease Maternal Grandmother Heart disease Paternal Grandmother Liver cancer FAMILY HISTORY Osteoporosis MOTHER, SISTER, 1ST COUSIN Heart disease MOTHER, 1ST COUSIN AND 3 GRANDPARENTS Daughter No problems noted. Daughter No problems noted. Social History (Updated 05/22/19 @ 10:05 by Alirio Go) Smoking/Tobacco Use Status: Never Alcohol Intake: never Drug use: Never Substance use type: does not use Caregiver/Support person: No Household members: spouse Housing: house Communication Needs: None Do you need help understanding health information?: Never current occupation: CLINICAL PSYCHOLOGIST Pets and animals: No Sexually active: Yes Do you think of yourself as: straight/heterosexual Current gender identity: female What is your relationship status?: How often do you talk on the phone with friends or family?: three or more times per week How often do you get together with friends or relatives?: three or more times per week How often do you attend confucianism or alevism services?: decline to answer Do you belong to any clubs or organized social groups?: yes Panel score (0-1 are the most socially isolated patients): 3 What type of physical activity do you participate in: walking, swimming and yoga Duration: 30-45 minutes/day Frequency: 5-6 times per week Carly/Rastafari: JUDIAISM Special carly needs: No Seatbelt use: always Helmet use: Yes Helmet use: always Drive intox or ride w/intox transit bus driver: No Do you feel safe in your relationship?: Yes Additional Social history: pt is here with family; interacts well Exam Narrative Exam Narrative: GEN: awake, alert, oriented 3. Pleasant, well groomed, interactive. HEAD: Normocephalic, atraumatic ENT: Mucous membranes moist, oropharynx unremarkable, External ear exam unremarkable EYES: PERRL, EOMI NECK: Full ROM, no SAPNA, no menigismus CHEST/RESP: Nontender, clear to auscultation bilateral, no wheeze/rhonchi/rales CARDIOVASCULAR: RRR, no murmur, rub abdifatah. 2+ Rad pulse bilateral ABDOMEN: Soft, nontender, no mass. +Bowel sounds EXT: Full ROM, no edema, there is warmth and anterior tibial erythema present right lower extremity. Neuro: Grossly normal neurologic exam, conversant, interactive. Psych: Speech fluent, thoughts congruent, affect normal Course Vital Signs Vital signs: Vital Signs Temperature 38.3 C H 08/13/19 15:21 Pulse 97 H 08/13/19 15:21 Respiratory Rate 20 08/13/19 15:21 Blood Pressure 102/47 L 08/13/19 15:21 Pulse Oximetry 93 L 08/13/19 15:21 Temperature 38.3 C H 08/13/19 15:21 Temperature Source Skin 08/13/19 15:21 Pulse 97 H 08/13/19 15:21 Respiratory Rate 20 08/13/19 15:21 Respiratory Effort Non-Labored 08/13/19 15:25 Blood Pressure 102/47 L 08/13/19 15:21 Pulse Oximetry 93 L 08/13/19 15:21 Pain Level 9 08/13/19 15:21
[2019-08-13] MEDS: Acetaminophen 500 MG TAB 1000 MG PO (16:01)
[2019-08-13] MEDS: Normal Saline 1,000 ML 1000 ML IV (16:01)
[2019-08-13 16:02] LABS: Abs Immature Grans 0.03 k/cumm (0.0-0.09); Absolute Basophil Count 0.03 k/cumm (0.0-0.2); Absolute Eosinophil Count 0.01 k/cumm (0.0-0.7); Absolute Lymphocyte Count 0.27 k/cumm (1.2-3.4); Absolute Monocyte Count 0.42 k/cumm (0.11-0.7); Absolute Neutrophil Count 12.23 k/cumm (1.2-6.7); Basophils % 0.2; Eosinophils % 0.1; HCT 36.6 % (36.0-46.0); Immature Grans % 0.2; Lymphocytes % 2.1; Mean Corp. HGB Concentration 32.8 g/dL (32.0-36.0); Mean Corpuscular Hemoglobin 30.5 pg (27.0-33.0); Mean Corpuscular Volume 92.9 fL (80-95); Mean Platelet Volume 10.1 fL (8.0-11.0); Monocytes % 3.2; Neutrophils % 94.2; Platelet Count 201 x1000/uL (130-400); RBC 3.94 m/cumm (4.00-5.20); RBC Distribution Width 12.6 % (11.7-14.6); White Blood Cell Count 12.98 k/cumm (4.4-10.8)
[2019-08-13] MEDS: AMPICILLIN/SULBACTAM 3 GM in Normal Saline 100 ML IVPB (16:12)
[2019-08-13 16:20] LABS: ALT 17 U/L (14-59); AST 16 U/L (15-37); Albumin 3.7 g/dL (3.4-5.0); Alkaline Phosphatase 51 U/L (46-116); Anion Gap 9.9 mmol/L (3-11); BUN 18 mg/dL (7-18); Bilirubin, Total 1.2 mg/dL (0.2-1.0); CO2 28.1 mmol/L (21.0-32.0); CREATININE 0.79 mg/dL (0.55-1.02); Calcium 8.6 mg/dL (8.5-10.1); Chloride 104 mmol/L (98-107); Glucose 104 mg/dL (74-106); Potassium 3.7 mmol/L (3.5-5.1); Sodium 142 mmol/L (136-145); Total Protein 6.6 g/dL (6.4-8.2)
[2019-08-13 16:39] LABS: Bilirubin Negative (Negative); Blood Trace-intact (Negative); Clarity Clear (Clear); Glucose Negative (Negative); Ketones Trace mg/dL (Negative); Leukocyte Esterase Negative (Negative); Nitrite Negative (Negative); Specific Gravity 1.015 (1.005-1.025); Urobilinogen 0.2 EU/dL (Up TO 0.2); pH 7.5 (5-8)
[2019-08-13 16:48] LABS: Bacteria Negative HPF (Negative); C & S Indicated? No; Crystals Negative HPF (Negative); Epithelial Cells Negative HPF (Negative); Mucus Negative (Negative); RBC 0-2 HPF (0-2); WBC Negative HPF (0-5)
[2019-08-13] MEDS: Amox. 875/Clav. 125, 2 TABS/BTL 1 TAB PO (17:50)
== END 2019-08-13 17:00 | disposition home or self-care (01) ==
PROVIDERS: Emergency Provider Emergency Medicine; PCP Family Medicine
DX: L03.115 Cellulitis of right lower limb (principal); R50.9 Fever, unspecified; R53.81 Other malaise
CPT/HCPCS: 36415; 80053; 87040; 93005; 96361; 96365; 99284; 81003; 81015; 85025; 93010; J0295

== ENCOUNTER 2019-08-16 05:24 | Emergency (ER) | payer OTHER, SELFPAY ==
[2019-08-16 05:35] VITALS: BP 122/50; PULSE 90; RESP 16; TEMP 36.5; O2SAT 98
[2019-08-16] MEDS: Normal Saline 1,000 ML 1000 ML IV (05:43)
[2019-08-16 05:45] LABS: BE (Venous) 4.6 mmol/L (-3-3); HCO3 (Venous) 29 mmol/L (22-28); O2 Sat (Venous) 43 % (70-80); TCO2 (Venous) 26 mmol/L (22-29); pCO2 (Venous) 42 mm/Hg (34-47); pH (Venous) 7.44 (7.32-7.43); pO2 (Venous) 23 mm/Hg (28-44)
[2019-08-16 05:49] LABS: Abs Immature Grans 0.01 k/cumm (0.0-0.09); Absolute Basophil Count 0.01 k/cumm (0.0-0.2); Absolute Eosinophil Count 0.01 k/cumm (0.0-0.7); Absolute Lymphocyte Count 0.67 k/cumm (1.2-3.4); Absolute Neutrophil Count 5.59 k/cumm (1.2-6.7); Basophils % 0.2; Eosinophils % 0.2; HCT 35.7 % (36.0-46.0); Immature Grans % 0.2; Lymphocytes % 10.2; Mean Corp. HGB Concentration 33.6 g/dL (32.0-36.0); Mean Corpuscular Hemoglobin 30.6 pg (27.0-33.0); Mean Corpuscular Volume 91.1 fL (80-95); Mean Platelet Volume 10.6 fL (8.0-11.0); Monocytes % 4.6; Neutrophils % 84.6; Platelet Count 153 x1000/uL (130-400); RBC 3.92 m/cumm (4.00-5.20); RBC Distribution Width 12.7 % (11.7-14.6); White Blood Cell Count 6.59 k/cumm (4.4-10.8)
--- NOTE | 2019-08-16 05:49 | ED.GENADUL_ITS ---
Discharge Plan Disposition Patient Disposition: HOME Condition: Stable Discharge Details Chief Complaint: Cellulitis Clinical Impression: Rash Primary Care Provider: Ann Chu ED Provider: Damien Shafer Home Meds and New Rx's Prescriptions: New prednisone 20 mg tablet 60 mg PO DAILY 5 Days Qty: 15 RF: 0 Continued bisoprolol fumarate 5 mg tablet 2.5 mg PO DAILY Qty: 30 RF: 11 tolterodine 2 mg capsule,extended release 24hr 2 mg PO DAILY Qty: 30 RF: 6 calcium carbonate-vitamin D3 1 EACH capsule 1 ea PO BID RF: 0 glucosamine [id number] 1 EACH tablet 1 ea PO BID RF: 0 olopatadine [Pataday] 0.2 % drops 1 drp Ophthalmic BID PRNRF: 0 sumatriptan succinate 25 mg tablet 25 mg PO as directed Qty: 12 RF: 2 ibuprofen 200 MG tablet 2 cap PO PRN PRNRF: 0 cholecalciferol (vit D3)(bulk) 1,000 GM liquid 1,000 gm Miscellaneous DAILY RF: 0 amoxicillin-pot clavulanate 875-125 mg tablet 1 tab PO BID 9 Days Qty: 18 RF: 0 Discharge Instructions Additional Instructions: Follow up with your primary care provider within 1 week and discuss continuing the steroids if you have severe worsening pain, fevers or feel more ill return to the emergency department Medical Decision Making 63 yo female comes in with rash to the right lower leg for 4 days and has been on augmentin. It initially started as redness to the right foot but now has a re d area on mid right anterior tibia and also right medial upper thigh. The thigh area is 4x5cm without crepitus or pain has mild warmth to it no fluctuance. Similar appearance to the mid tibia on the right leg that is 3x4 cm and the entire right foot is red with mild warmth. She has not had high fevers, no severe pain. Given none of these are confluent I suspect this may actually be dermatitis vs vasculatitis, will obtain lab work including blood cultures, cbc, and procalcitonin and monitor. No fevers or tachycardia or other symptoms to suggest sepsis at this time pt remains stable, labs unremarkable other than procalcitonin of 2 and because of this result I recommended admission for IV abx which patient decilned and has capacity to make her own decisions and understands risks of worsening infection. I am still suspicious this could be dermatitis vs vasculitis, advised the pt to continue augmentin but will also start her on oral steroids and advised f/u with pcp and return precautions given Differential Diagnosis Differential Diagnosis: vasculitis, dermatitis, cellulitis Lab Data Lab results reviewed: Yes I reviewed the patient's lab results. HPI General Mode of arrival: ambulatory . Date/Time Provider Initiated Documentation: 08/16/19 05:25 . Limitations to Documentation: no limitations . Information obtained by: patient . History of Present Illness 63 year old F presents to the emergency department with the chief complaint of rash, desc ribed as moderate, Patient started experiencing this day(s) (3) and it has been constant. No relieving factors improve symptom(s), No exacerbating factors reported . Patient did receive the following treatments prior to arrival, none Related Data Home Medications Medication Instructions Recorded Confirmed ibuprofen 2 cap PO PRN PRN 05/29/13 08/16/19 calcium carbonate-vitamin D3 1 ea PO BID 03/20/16 08/16/19 glucosamine [id number]-[id number] 1 ea PO BID 03/20/16 08/16/19 cholecalciferol (vit D3)(bulk) 1,000 gm MISCELLANEOUS DAILY 04/24/16 08/16/19 olopatadine 0.2 % eye drops 1 drp OPHTHALMIC BID PRN drp 05/20/18 08/16/19 bisoprolol fumarate 5 mg tablet 2.5 mg PO DAILY #30 tab 01/15/19 08/16/19 tolterodine 2 mg capsule,extended 2 mg PO DAILY #30 cap 05/25/19 08/16/19 release 24 hr sumatriptan succinate 25 mg tablet 25 mg PO as directed #12 tab-cap 08/08/19 08/16/19 amoxicillin-pot clavulanate 1 tab PO BID 9 Days #18 tab 08/13/19 08/15/19 prednisone 60 mg PO DAILY 5 Days #15 tab 08/16/19 Previous Rx's Medication Instructions Recorded bisoprolol fumarate 5 mg tablet 2.5 mg PO DAILY #30 tab 01/15/19 tolterodine 2 mg capsule,extended 2 mg PO DAILY #30 cap 05/25/19 release 24 hr sumatriptan succinate 25 mg tablet 25 mg PO as directed #12 tab-cap 08/08/19 amoxicillin-pot clavulanate 1 tab PO BID 9 Days #18 tab 08/13/19 prednisone 60 mg PO DAILY 5 Days #15 tab 08/16/19 Allergies Allergy/AdvReac Type Severity Reaction Status Date / Time alcohol Allergy Unknown Unverified 08/15/19 13:49 General Stated Complaint: Cellulitis GAEL: 3 Review of Systems All systems reviewed & are unremarkable except as noted in HPI and below Constitutional Constitutional: Denies weakness Cardiovascular Cardiovascular: Denies chest pain and Denies dyspnea Respiratory Respiratory: Denies cough and Denies dyspnea Gastrointestinal Gastrointestinal: Denies abdominal pain, Denies nausea and Denies vomiting Musculoskeletal Musculoskeletal: Denies joint swelling Neurologic Neurologic: Denies weakness Psychiatric Psychiatric: Denies depression [facility] Surgical History Colonoscopy - MAC (04/20/17) Removal of L eye 10/2014. s/p corneal perforation. Tonsillectomy and adenoidectomy Family History (Updated 05/22/19 @ 10:09 by Alirio Go) Mother Essential hypertension Heart disease Hyperlipidemia Father , age 90 Essential hypertension Heart disease Diabetes Skin cancer Sister Skin cancer Hypertension Sister Skin cancer Heart disease Maternal Grandfather Heart disease Paternal Grandfather Heart disease Maternal Grandmother Heart disease Paternal Grandmother Liver cancer FAMILY HISTORY Osteoporosis MOTHER, SISTER, 1ST COUSIN Heart disease MOTHER, 1ST COUSIN AND 3 GRANDPARENTS Daughter No problems noted. Daughter No problems noted. Social History (Updated 05/22/19 @ 10:05 by Alirio Go) Smoking/Tobacco Use Status: Never Alcohol Intake: never Drug use: Never Substance use type: does not use Caregiver/Support person: No Household members: spouse Housing: house Communication Needs: None Do you need help understanding health information?: Never current occupation: CLINICAL PSYCHOLOGIST Pets and animals: No Sexually active: Yes Do you think of yourself as: straight/heterosexual Current gender identity: female What is your relationship status?: How often do you talk on the phone with friends or family?: three or more times per week How often do you get together with friends or relatives?: three or more times per week How often do you attend pentecostalism or restorationism services?: decline to answer Do you belong to any clubs or organized social groups?: yes Panel score (0-1 are the most socially isolated patients): 3 What type of physical activity do you participate in: walking, swimming and yoga Duration: 30-45 minutes/day Frequency: 5-6 times per week Carly/Moravian: JUDIAISM Special carly needs: No Seatbelt use: always Helmet use: Yes Helmet use: always Drive intox or ride w/intox delivery driver/supervisor: No Do you feel safe at home: Yes Do you feel safe in your relationship?: Yes Additional Social history: pt is here with family; interacts well Exam Const General: no acute distress Orientation: alert HENMT Head: normal to inspection Ears: external ears normal General nose exam: external nose normal Mouth: moist mucous membranes Eyes General: appearance normal, both eyes and all related structures Neck Neck: normal visual inspection Resp Effort & Inspection: normal respiratory effort and able to speak in complete sentences Cardio Rate: regular rate Skin General skin exam: elasticity normal Neuro General: alert and oriented x3 Extrem General: normal to inspection Psych Mental Status: mental status grossly normal Course Vital Signs Vital signs: Vital Signs Temperature 36.5 C 08/16/19 05:35 Pulse 90 08/16/19 05:35 Respiratory Rate 16 08/16/19 05:35 Blood Pressure 122/50 L 08/16/19 05:35 Pulse Oximetry 98 08/16/19 05:35 Temperature 36.5 C 08/16/19 05:35 Temperature Source Skin 08/16/19 05:35 Pulse 90 08/16/19 05:35 Respiratory Rate 16 08/16/19 05:35 Respiratory Effort 08/16/19 05:44 Blood Pressure 122/50 L 08/16/19 05:35 Blood Pressure Position Sitting 08/16/19 05:35 Pulse Oximetry 98 08/16/19 05:35 Oxygen Delivery Method Room Air 08/16/19 05:35 Oxygen Flow Rate 0 08/16/19 05:35 Lab/Test Results Lab/Test Results: 08/16/19 05:32 Blood Blood Culture - Pending 08/16/19 05:32 Blood Blood Culture - Pending
[2019-08-16 05:53] LABS: Lactate 0.7 mmol/L (0.6-1.4)
[2019-08-16 06:00] LABS: ALT 22 U/L (14-59); AST 24 U/L (15-37); Albumin 2.9 g/dL (3.4-5.0); Alkaline Phosphatase 58 U/L (46-116); BUN 11 mg/dL (7-18); Bilirubin, Total 0.7 mg/dL (0.2-1.0); CREATININE 0.73 mg/dL (0.55-1.02); Calcium 8.5 mg/dL (8.5-10.1); Chloride 102 mmol/L (98-107); Glucose 98 mg/dL (74-106); Magnesium 1.8 mg/dL (1.8-2.4); Potassium 3.3 mmol/L (3.5-5.1); Sodium 139 mmol/L (136-145); Total Protein 6.5 g/dL (6.4-8.2)
[2019-08-16] MEDS: Ondansetron 4 MG/2 ML VIAL IVP (06:38)
[2019-08-16] MEDS: methylPREDNISolone SUCC 125 MG VIAL IVP (06:55)
[2019-08-16 07:30] VITALS: BP 111/37; PULSE 69; RESP 16; TEMP 36.5; O2SAT 99
== END 2019-08-16 07:24 | disposition home or self-care (01) ==
PROVIDERS: Emergency Provider Emergency Medicine; PCP Family Medicine
DX: R21 Rash and other nonspecific skin eruption (principal)
CPT/HCPCS: 36415; 80053; 82805; 84145; 87040; 96361; 96374; 96375; 99284; 83605; 83735; 85025; 99283; J2405; J2930

== ENCOUNTER 2019-09-29 01:06 | Outpatient (CLI) | payer MEDICARE, OTHER, SELFPAY ==
--- NOTE | 2019-09-29 07:45 | DI.MAMMO_ITS ---
EXAM: MAMMO SCREENING CLINICAL HISTORY: screening,Z12.39 TECHNIQUE: Mammograms were interpreted according to the usual protocol including computer analysis w [place] CAD system, tomosynthesis and C-view imaging. COMPARISON: 2009 through 2017 FINDINGS: The breasts are composed of heterogeneously dense fibroglandular densities, Breast Density category C . Left breast: No suspicious masses or suspicious microcalcifications are seen. No skin thickening or abnormal axillary lymph nodes are seen. There has been no significant change from prior exams. Right breast: There is a nodular asymmetry in the lateral right breast and areas of increased density in superior right breast. Spot compression views and ultrasound are requested for further evaluatio n. No suspicious calcifications are seen. IMPRESSION: Left breast: BIRADS Category 1, negative mammogram. Yearly screening mammography is recommended. Right breast: BI-RADS Cat 0 - Assessment Incomplete: Need additional imaging evaluation BREAST DENSITY: The mammogram demonstrates the patient's breast tissue is dense. Dense breast tissue is very common and is not abnormal but dense breast tissue can make it harder to find cancer on a ma mmogram. Also, dense breast tissue may increase breast cancer risk. This information about the result of the mammogram report was provided to the patient to raise their awareness. Use this report when y ou speak with the patient about their risks for breast cancer, which includes their family history. A t that time, you may recommend additional screening tests (Ultrasound or MRI) as they might be useful based on their risk. A negative radiographic report should not delay biopsy if a dominant or clinically suspicious mass is present. Up to ten percent of cancers are not identified on mammography. A negative report may reinforce clinical impression. Adenosis and dense breasts may obscure an underlying neoplasm. False positive reports average 6 to 10%.
== END 2019-09-29 01:26 ==
PROVIDERS: PCP Family Medicine; Visit Provider Family Medicine
DX: Z12.31 Encounter for screening mammogram for malignant neoplasm of breast (principal); R92.8 Other abnormal and inconclusive findings on diagnostic imaging of breast
CPT/HCPCS: 77063; 77067

== ENCOUNTER 2019-10-01 01:21 | Outpatient (CLI) | payer MEDICARE, OTHER, SELFPAY ==
--- NOTE | 2019-10-01 | DI.MAMMO_ITS ---
EXAM: MG MAMMO SCREEN CALL BACK UNI AND US BREAST RT LIMITED CLINICAL HISTORY: F/U MAMMO, NODULAR ASYMMETRY AND INCREASED DENSITY TECHNIQUE: Ultrasound performed using standard protocol. COMPARISON: 2010 through 2018 mammograms. FINDINGS: Additional views of the right breast: Spot compression views with tomography were performed of the up per and outer aspects of the right breast. Magnification views were also performed. Magnification v iews show a cluster of calcifications seen in the upper outer quadrant. There is a probable associat ed mass with mild spiculation. This is not well seen on the MLO view due to overlying tissue. Right breast ultrasound: No mass or calcifications could be identified on ultrasound. IMPRESSION: BI-RADS Cat 4 - Suspicious Abnormality: Biopsy should be considered. Calcifications and associated mass are seen in upper outer quadrant of the right breast. The findings were discussed with the alayna ent after completion of the exam and phoned to Dr. Chu. BI-RADS Cat 4 - Suspicious Abnormality: Biopsy should be considered Breast Density - Category C - Heterogeneously dense
== END 2019-10-01 01:41 ==
PROVIDERS: PCP Family Medicine; Visit Provider Family Medicine
DX: Z12.31 Encounter for screening mammogram for malignant neoplasm of breast (principal); R92.8 Other abnormal and inconclusive findings on diagnostic imaging of breast; N63.11 Unspecified lump in the right breast, upper outer quadrant; R92.1 Mammographic calcification found on diagnostic imaging of breast
CPT/HCPCS: 76642; 77063; 77067

== ENCOUNTER 2020-02-25 15:11 | Outpatient (CLI) | payer MEDICARE, OTHER, SELFPAY ==
--- NOTE | 2020-02-25 15:00 | RT.EKG_ITS ---
APPROVED REPORT Exam: Resting ECG Patient Location: O HR:67 bpm ECG Measurements Heart Rate 67 AXIS NC 182 P 73 QRSd 98 QRS 60 QT 421 T 57 QTc 444 <Conclusion> Sinus rhythm...normal P axis, V-rate 60- 99 Ventricular bigeminy...bigeminy string>4 w/ V complexes
[2020-02-25 21:49] LABS: Absolute Basophil Count 0.05 k/cumm (0.0-0.2); Absolute Monocyte Count 0.49 k/cumm (0.11-0.7); Basophils % 0.8; Eosinophils % 1.5; HCT 38.3 % (36.0-46.0); HGB 12.4 g/dL (12.0-15.5); Mean Corp. HGB Concentration 32.4 g/dL (32.0-36.0); Mean Corpuscular Hemoglobin 30.5 pg (27.0-33.0); Mean Corpuscular Volume 94.1 fL (80-95); Mean Platelet Volume 11.4 fL (8.0-11.0); Monocytes % 7.5; Neutrophils % 64.2; Platelet Count 240 x1000/uL (130-400); RBC 4.07 m/cumm (4.00-5.20); RBC Distribution Width 13.1 % (11.7-14.6); White Blood Cell Count 6.54 k/cumm (4.4-10.8)
[2020-02-25 22:00] LABS: ALT 19 U/L (14-59); AST 14 U/L (15-37); Alkaline Phosphatase 52 U/L (46-116); Anion Gap 9.6 mmol/L (3-11); BUN 21 mg/dL (7-18); Bilirubin, Total 1.1 mg/dL (0.2-1.0); CO2 27.4 mmol/L (21.0-32.0); CREATININE 0.69 mg/dL (0.55-1.02); Calcium 9.1 mg/dL (8.5-10.1); Chloride 106 mmol/L (98-107); Glucose 89 mg/dL (74-106); Magnesium 2.1 mg/dL (1.8-2.4); Potassium 4.2 mmol/L (3.5-5.1); Sodium 143 mmol/L (136-145); Total Protein 6.4 g/dL (6.4-8.2)
== END 2020-02-25 15:31 ==
PROVIDERS: PCP Family Medicine; Visit Provider Family Medicine
DX: I49.8 Other specified cardiac arrhythmias (principal); R53.83 Other fatigue; E83.42 Hypomagnesemia
CPT/HCPCS: 80053; 83735; 85025

== ENCOUNTER → 2020-03-11 13:46 | Outpatient (BNVA) | payer MEDICARE, OTHER, SELFPAY | PROVIDERS: PCP Family Medicine; Referring Provider Family Medicine; Visit Provider Internal Medicine Cardiovascular Disease | DX: I48.0 Paroxysmal atrial fibrillation (principal); R93.1 Abnormal findings on diagnostic imaging of heart and coronary circulation | CPT/HCPCS: 99214 ==

== ENCOUNTER 2020-04-21 04:32 | Outpatient (CLI) | payer MEDICARE, OTHER, SELFPAY ==
--- NOTE | 2020-04-21 08:30 | DI.DEXA_ITS ---
EXAM: XR DEXA BONE DENSITY W/WO EMILIE CLINICAL HISTORY: breast cancer/considering chemotherapy, C50.919,MENOPAUSAL SCREENING, Z78.0 TECHNIQUE: COMPARISON: 07/10/2017. FINDINGS: Lateral Spine Image: Unremarkable. No compression deformities identified. Left hip: Total T-Score: -1.8. This compares with -1.7 on the prior examination. Total Z-Score: -0.5. T- and Z-scores: Osteopenia with an increased fracture risk. Lumbar Spine: Total T-Score: 0.0. This compares with -0.2 on the previous examination. Total Z-Score: 1.8 T- and Z-scores: Within normal limits. IMPRESSION: No evidence of osteoporosis.
== END 2020-04-21 04:52 ==
PROVIDERS: PCP Family Medicine; Visit Provider Family Medicine
DX: Z78.0 Asymptomatic menopausal state (principal)
CPT/HCPCS: 77080

== ENCOUNTER 2020-04-23 01:17 | Outpatient (CLI) | payer MEDICARE, OTHER, SELFPAY ==
--- NOTE | 2020-05-10 08:46 | W.HOLTRPT ---
Date of service: 05/10/20 Time of Service: 08:46 Holter Monitor Report Referring Provider:: woodrow Indications:: PAF Holter Monitor Note: This is a 14-day Holter monitor ordered for indication of paroxysmal atrial fibrillation. ?The patient was in normal sinus rhythm for the majority of the recording with an average heart rate of 67 bpm. (Minimum heart rate 40 bpm) ?There were 32 episodes of ventricular tachycardia with the longest lasting 6 beats at a rate of 183 bpm. ?There were 11 episodes of supraventricular tachycardia with the longest lasting 8 beats. ?There were frequent (9%) ventricular ectopic beats ?Patient diary events were associated with sinus rhythm and ventricular ectopy.
--- NOTE | 2020-05-13 09:04 | ZIOP_ITS ---
Date of service: 05/13/20 Time of Service: 09:04 ZIO Patch Photographer [employer] Referring Provider:: woodrow Indications:: PAF Note: This is a 14-day monitoring manager ordered for indication of paroxysmal atrial fibrillation. ?Patient was in normal sinus rhythm for the majority of the recording with an average heart rate of 67 bpm. ?There were frequent (9%) premature ventricular contractions and rare premature atrial contractions. ?There were 32 total runs of NSVT with the longest lasting 6 beats. ?There were 11 runs of supraventricular tachycardia with the longest lasting 8 beats. ?There were 0 episodes of atrial fibrillation and no pauses greater than 3 seconds.
== END 2020-04-23 01:37 ==
PROVIDERS: PCP Family Medicine; Visit Provider Internal Medicine Cardiovascular Disease
DX: I48.0 Paroxysmal atrial fibrillation (principal); I47.1 Supraventricular tachycardia; I47.2 Ventricular tachycardia; I49.3 Ventricular premature depolarization
CPT/HCPCS: 0296T

== ENCOUNTER 2020-05-13 12:00 | Outpatient (CLI) | payer MEDICARE, OTHER, SELFPAY | END 2020-05-13 12:20 | PROVIDERS: PCP Family Medicine; Referring Provider Internal Medicine Cardiovascular Disease; Visit Provider Internal Medicine Cardiovascular Disease | DX: I48.0 Paroxysmal atrial fibrillation (principal); I47.1 Supraventricular tachycardia; I47.2 Ventricular tachycardia; I49.3 Ventricular premature depolarization | CPT/HCPCS: 0298T ==

== ENCOUNTER → 2020-06-08 14:04 | Outpatient (BNVA) | payer MEDICARE, OTHER, SELFPAY | PROVIDERS: PCP Family Medicine; Referring Provider Family Medicine; Visit Provider Internal Medicine Cardiovascular Disease | DX: I48.0 Paroxysmal atrial fibrillation (principal); R93.1 Abnormal findings on diagnostic imaging of heart and coronary circulation | CPT/HCPCS: 99214; 99442 ==

== ENCOUNTER → 2020-08-27 09:01 | Outpatient (BNVA) | payer MEDICARE, OTHER, SELFPAY | PROVIDERS: PCP Family Medicine; Referring Provider Family Medicine; Visit Provider Internal Medicine Cardiovascular Disease | DX: I48.0 Paroxysmal atrial fibrillation (principal); I42.8 Other cardiomyopathies; E78.5 Hyperlipidemia, unspecified | CPT/HCPCS: 99214; 99213 ==

== ENCOUNTER → 2021-01-06 09:54 | Outpatient (BNVA) | payer MEDICARE, OTHER, SELFPAY | PROVIDERS: PCP Family Medicine; Referring Provider Family Medicine; Visit Provider Internal Medicine Cardiovascular Disease | DX: I48.0 Paroxysmal atrial fibrillation (principal); I49.3 Ventricular premature depolarization | CPT/HCPCS: 99214; 99213 ==

== ENCOUNTER 2021-01-10 08:37 | Outpatient (RCR) | payer MEDICARE, OTHER, SELFPAY ==
--- NOTE | 2021-01-11 09:15 | HOLTER_ITS ---
APPROVED REPORT Conclusion This is a 48-hour monitor ordered for indication of PVCs. Patient was normal sinus rhythm for the majority of the recording with an average heart rate of 62 bp m There were no episodes of VT and occasional (3%) PVCs. There were 2 episodes of supraventricular tachycardia with the longest lasting 8 beats. There were r are PACs. There were no episodes of atrial fibrillation, no pauses greater than 3 seconds and no evidence of hi gh-grade heart block. There were 3 patient triggered events associated with normal sinus rhythm.
== END 2021-01-17 23:59 | disposition home or self-care (01) ==
LOC: RT 08:37
PROVIDERS: PCP Family Medicine; Visit Provider Internal Medicine Cardiovascular Disease
DX: I49.3 Ventricular premature depolarization (principal); I47.1 Supraventricular tachycardia
CPT/HCPCS: 93227; 93225; 93226

== ENCOUNTER 2021-01-26 01:24 | Outpatient (CLI) | payer MEDICARE, OTHER, SELFPAY ==
--- NOTE | 2021-01-26 10:30 | DI.US_ITS ---
APPROVED REPORT EXAM: Comprehensive 2D, Doppler, and color-flow Echocardiogram Patient Location: Out-Patient Custom Dressmaker: Desiree Gregory RDCS (AE) Indications: PVC, Paroxysmal Atrial Fibrillation Other Information Study Quality: Adequate Conclusion Left Ventricle : The left ventricle is normal size. Left ventricular systolic function is low normal. There is global hypokinesis of the left ventricle. LVEF is 50%. Right Ventricle : The right ventricle is normal size. The right ventricular systolic function is norm al. The RVSP is 27.4mmHg. Atria : The left atrium size is normal. The right atrium size is normal. Mitral Valve : Mild mitral annular calcification. Mild mitral regurgitation. No evidence of mitral va lve stenosis. Tricuspid Valve : The tricuspid valve is normal in structure. Mild to moderate tricuspid regurgitatio n. There is no tricuspid valve stenosis. Great Vessels : The ascending aorta is normal in size. Aortic arch is normal in caliber. IVC is grace l in size and collapses >50% with inspiration. Compared to echocardiogram from 12/23/2018, patient's ejection fraction has improved slightly. Her LV dimensions are in the upper limit of normal. Wall motion Left Ventricle The left ventricle is normal size. Left ventricular systolic function is low normal. There is normal left ventricular wall thickness. There is global hypokinesis of the left ventricle. There is no ventr icular septal defect visualized. LVEF is 50%. Right Ventricle The right ventricle is normal size. The right ventricular systolic function is normal. The RVSP is 27 .4mmHg. Atria The left atrium size is normal. The right atrium size is normal. The atrial septum is aneurysmal. The interatrial septum is intact with no evidence for an atrial septal defect. Aortic Valve The aortic valve is normal in structure. Aortic valve is trileaflet. There is no aortic valvular sten osis. No aortic regurgitation is present. Mitral Valve Mild mitral annular calcification. No evidence of mitral valve stenosis. Mild mitral regurgitation. Tricuspid Valve The tricuspid valve is normal in structure. There is no tricuspid valve stenosis. Mild to moderate tr icuspid regurgitation. Pulmonic Valve The pulmonary valve is normal in structure. There is no pulmonic valvular stenosis. Trace pulmonic re gurgitation. Great Vessels The aortic root is normal in size. The ascending aorta is normal in size. Aortic arch is normal in ca liber. IVC is normal in size and collapses >50% with inspiration. Pericardium There is no pericardial effusion. 2D Dimensions IVSD d PLAX 0.74 cm F: 0.6-1.0 LV Vol A2C d MOD 108.8 mL LVPW d PLAX 0.78 cm F: 0.6 - 1.0 LV Vol A4C d MOD 102.1 mL LVID d PLAX 5.26 cm F: 3.8 - 5.2 LA vol/ BSA A4C s A-L 34.0 mL/m2 LVDs 4.00 cm F: 2.2 - 3.5 LA Area A4C s MOD 19.12 cm2 Ao Root d 2.68 cm F: 2.7 - 3.3 LV EF A4C MOD 53.2 % RA Area A4C 14.13 cm2 LV EF A2C MOD 48.1 % RA Vol/ BSA A4C s A-L 20.9 mL/m2 LV EF Biplane MOD 50.1 % Ao Asc Diam d 3.05 cm F: 2.3 - 3.1 SV 55.00 mL LV EF Teichholz 46.2 % SV Index 30.74 mL/m2 LVEF (Arcos's) 50.06 % F: 54 - 74 LV Volume 85.64 mL F: 46 - 106 LV Volume Index 47.84 mL/m2 F: 29 - 61 LV Vol Biplane MOD 109.9 mL FS 23.25 % M-Mode TAPSE 2.64 cm (M/F) >1.7 LV Diastology MV E' medial 0.067 (>0.07 m/s) E/A Ratio 0.6 LV E/e MED 5.85 (<14) MV E Vmax 0.40 (0.4-1.3 m/s) MV E' lateral 0.051 (>0.1 m/s) MV A Vmax 0.65 (0.4-1.3 m/s) LV E/e LAT 7.80 (<14) MV E/A Ratio 0.60 MV E/E' medial 5.89 MV E/E' lateral 7.82 Aortic Valve LVOT Area 2.62 cm2 AoV Area Vmax 1.69 cm2 LVOT Vmax 0.74 m/s AoV Area/ BSA (Vmax) 0.94 cm2/m2 LVOT Mean Alessio. 0.53 m/s SANDY Mean Alessio. 1.73 cm2 LVOT Peak Grad 2.2 mmHg SANDY Mean Alessio. Index 0.97 cm2/m2 LVOT Mean Grad 1.2 mmHg LVOT VTI 0.153 m LVOT Diam s 1.80 cm AoV Vmax 1.14 m/s Velocity Ratio 0.64 AoV Mean Alessio. 0.80 m/s AoV Peak Grad 5.2 mmHg LVOT SV 40.01 mL AoV Mean Grad 2.9 mmHg AoV VTI 0.244 m AoV Area VTI 1.64 cm2 AoV Area/ BSA (VTI) 0.92 cm/m2 Mitral Valve MV DT 170 (160-240 msec) MV PHT 49 msec MV Area PHT 4.47 cm2 MV VTI 0.197 m MV Area VTI 2.03 (4.0-6.0 cm2) Pulmonary Valve PV Vmax 0.99 (0.5-1.5 m/s) RVOT Peak Gr. 0.96 mmHg PV Peak Grad 4.0 mmHg RVOT Mean Gr. 0.55 mmHg PV Mean Grad 2.1 mmHg RVOT VTI 0.101 m PV VTI 0.207 m RVOT Vmax 0.49 m/s Tricuspid Valve TR Peak Grad 24.3 mmHg TR Vmax 2.47 m/s RA Pressure 3.00 mmHg RVSP (TR) 27.4 mmHg
== END 2021-01-26 01:44 ==
PROVIDERS: PCP Family Medicine; Visit Provider Internal Medicine Cardiovascular Disease
DX: I48.0 Paroxysmal atrial fibrillation (principal); I08.1 Rheumatic disorders of both mitral and tricuspid valves; I49.3 Ventricular premature depolarization
CPT/HCPCS: 93306

== ENCOUNTER 2021-05-17 14:09 | Outpatient (CLI) | payer MEDICARE, OTHER, SELFPAY ==
--- NOTE | 2021-05-17 14:00 | RT.EKG_ITS ---
APPROVED REPORT Exam: Resting ECG Reason for Exam: Chest discomfort Patient Location: O HR:57 bpm ECG Measurements Heart Rate 57 AXIS MT 185 P 68 QRSd 98 QRS 42 QT 419 T 50 QTc 408 Conclusion Sinus bradycardia...rate< 60 Ventricular bigeminy...bigeminy string>4 w/ V complexes
== END 2021-05-17 14:10 | disposition home or self-care (01) ==
LOC: DI.CM 14:09
PROVIDERS: PCP Family Medicine; Visit Provider Nurse Practitioner Family
DX: R07.89 Other chest pain (principal)
CPT/HCPCS: 93010

== ENCOUNTER 2021-05-17 19:25 | Outpatient (REF) | payer MEDICARE, OTHER, SELFPAY ==
[2021-05-17 22:06] LABS: Anion Gap 6.1 mmol/L (3-11); BUN 18 mg/dL (7-18); CO2 29.9 mmol/L (21.0-32.0); CREATININE 0.7 mg/dL (0.55-1.02); Calcium 8.7 mg/dL (8.5-10.1); Chloride 108 mmol/L (98-107); Glucose 89 mg/dL (74-106); Magnesium 2.2 mg/dL (1.8-2.4); Potassium 4.2 mmol/L (3.5-5.1); Sodium 144 mmol/L (136-145)
== END 2021-05-17 19:26 | disposition home or self-care (01) ==
LOC: LBN 19:25
PROVIDERS: PCP Family Medicine; Visit Provider Nurse Practitioner Family
DX: R00.1 Bradycardia, unspecified (principal)
CPT/HCPCS: 80048; 83735

== ENCOUNTER 2021-05-19 04:12 | Outpatient (RCR) | payer MEDICARE, OTHER, SELFPAY ==
--- NOTE | 2021-05-19 10:00 | HOLTER_ITS ---
APPROVED REPORT Conclusion This was a 48-hour Holter monitor ordered for bradycardia Rhythm throughout was sinus. Average heart rate was 62. Minimum was 47, maximum 100 There were very rare atrial premature beats. There was one 3 beat atrial run. There was no atrial f ibrillation, no high-grade AV block, no pauses greater than 3 seconds There were occasional ventricular ectopic beats, rare couplets, no ventricular tachycardia Sinus bradycardia was noted during sleep No patient symptoms were reported
== END 2021-05-19 23:59 | disposition home or self-care (01) ==
LOC: RT 04:12
PROVIDERS: PCP Family Medicine; Visit Provider Nurse Practitioner Family
DX: R00.1 Bradycardia, unspecified (principal)
CPT/HCPCS: 93225

== ENCOUNTER 2021-05-21 07:00 | Outpatient (RCR) | payer MEDICARE, OTHER, SELFPAY | END 2021-06-19 23:59 | disposition home or self-care (01) | LOC: RT 07:00 | PROVIDERS: PCP Family Medicine; Visit Provider Internal Medicine Cardiovascular Disease | DX: R00.1 Bradycardia, unspecified (principal); I49.1 Atrial premature depolarization; I49.3 Ventricular premature depolarization | CPT/HCPCS: 93227; 93226 ==

== ENCOUNTER → 2021-06-03 13:13 | Outpatient (BNVA) | payer MEDICARE, OTHER, SELFPAY | PROVIDERS: PCP Family Medicine; Referring Provider Family Medicine; Visit Provider Internal Medicine Cardiovascular Disease | DX: I49.3 Ventricular premature depolarization (principal); I48.0 Paroxysmal atrial fibrillation; R93.1 Abnormal findings on diagnostic imaging of heart and coronary circulation | CPT/HCPCS: 99214; 99213 ==

== ENCOUNTER → 2022-01-05 13:30 | Outpatient (BNVA) | payer MEDICARE, SELFPAY | PROVIDERS: PCP Nurse Practitioner Family; Referring Provider Nurse Practitioner Family; Visit Provider Internal Medicine Cardiovascular Disease | DX: I49.3 Ventricular premature depolarization (principal); I48.0 Paroxysmal atrial fibrillation | CPT/HCPCS: 99213 ==

== ENCOUNTER 2022-09-06 03:09 | Outpatient (CLI) | payer MEDICARE, SELFPAY ==
[2022-09-06 13:10] LABS: BUN 14 mg/dL (7-18); CREATININE 0.7 mg/dL (0.55-1.02); Calculated LDL 131 mg/dL (<100); Chloride 106 mmol/L (98-107); Cholesterol 207 mg/dL (<200); Estimated GFR 94.73 (mL/min/1.73m2); Glucose 81 mg/dL (74-106); HDL Cholesterol 66 mg/dL (40-60); Potassium 4.2 mmol/L (3.5-5.1); Sodium 143 mmol/L (136-145); TSH (W/Ref FT4) 2.57 uIU/mL (0.36-3.74); Triglyceride 51 mg/dL (<150)
[2022-09-06 13:24] LABS: Vitamin D 25 Total 60.4 ng/mL (30-100)
[2022-09-07 14:37] LABS: Hemoglobin A1C 5.5 % (<5.7)
== END 2022-09-06 03:10 | disposition home or self-care (01) ==
LOC: LOS 03:09
PROVIDERS: PCP Nurse Practitioner Family; Visit Provider Nurse Practitioner Family
DX: E78.5 Hyperlipidemia, unspecified (principal); R73.01 Impaired fasting glucose; M85.88 Other specified disorders of bone density and structure, other site; I48.0 Paroxysmal atrial fibrillation; I49.3 Ventricular premature depolarization
CPT/HCPCS: 36415; 80048; 80061; 82306; 83036; 84443

== ENCOUNTER → 2023-01-04 13:35 | Outpatient (BNVA) | payer MEDICARE, SELFPAY | PROVIDERS: PCP Nurse Practitioner Family; Visit Provider Internal Medicine Cardiovascular Disease | DX: I42.8 Other cardiomyopathies (principal); I49.3 Ventricular premature depolarization; I48.0 Paroxysmal atrial fibrillation | CPT/HCPCS: 99213 ==

== ENCOUNTER 2023-01-22 10:08 | Outpatient (REF) | payer MEDICARE, SELFPAY ==
[2023-01-23 00:05] LABS: Campylobacter PCR Negative (Negative); Salmonella PCR Negative (Negative); Shiga Toxin PCR Negative (Negative); Shigella/Enteroinvasive Ecoli Negative (Negative)
== END 2023-01-22 10:09 | disposition home or self-care (01) ==
LOC: NCHCN 10:08
PROVIDERS: PCP Nurse Practitioner Family; Visit Provider Physician Assistant
DX: R19.7 Diarrhea, unspecified (principal)
CPT/HCPCS: 87329; 87505; 87177

== ENCOUNTER → 2023-10-22 03:11 | Outpatient (CLI) | payer MEDICARE, SELFPAY ==
--- NOTE | 2023-10-22 08:30 | DI.DEXA_ITS ---
Exam(s) XR DEXA BONE DENSITY W/WO EMILIE EXAM: XR DEXA BONE DENSITY W/WO EMILIE CLINICAL HISTORY: osteopenia, POSTMENOPAUSAL STATUS, Z78.0 TECHNIQUE: HoloKloudless Horizon C densitometer analysis of left hip, lumbar spine and left forearm. Lat eral survey image of the thoracic and lumbar spine. COMPARISON: CR XR DEXA BONE DENSITY W/WO EMILIE from 2006 through 2019 FINDINGS: Lateral view of the thoracic and lumbar spine shows no evidence of compression fractures. Bone mineral density measurements of the lumbar spine correspond to a total T-score of 0.0, in the no rmal range. This is not significantly changed from 2019 but represents a 2.2 percent decrease from 007. Bone mineral density measurements of the left hip correspond to a total T-score of -1.9, in the oste openic range. This represents a 2.7 percent decrease from 2019 and 10.7 percent decrease from 2006.. The femoral neck T-score is -1.0. Theleft forearm bone mineral density measurements correspond to a T-score of the distal 3rd of -1.0 at the lower range of normal. This is not significantly changed from 2016 and 2019.. IMPRESSION: Normal bone mineral density of the lumbar spine. Borderline osteopenia of the forearm. Osteopenia o f the hip.
== END ==
PROVIDERS: PCP Nurse Practitioner Family; Visit Provider Nurse Practitioner Family
DX: Z78.0 Asymptomatic menopausal state (principal); Z13.820 Encounter for screening for osteoporosis
CPT/HCPCS: 77080

== ENCOUNTER 2023-11-08 05:36 | Outpatient (CLI) | payer MEDICARE, SELFPAY ==
[2023-11-08 07:57] LABS: Abs Immature Grans 0.01 10^3/uL (0.0-0.06); Absolute Basophil Count 0.08 10^3/uL (0.0-0.2); Absolute Eosinophil Count 0.24 10^3/uL (0.0-0.7); Absolute Lymphocyte Count 1.35 10^3/uL (1.2-3.4); Absolute Monocyte Count 0.65 10^3/uL (0.1-0.8); Absolute Neutrophil Count 5.26 10^3/uL (1.2-6.7); Basophils % 1.1; Eosinophils % 3.2; HCT 38.8 % (36.0-46.0); HGB 12.7 g/dL (11.2-15.7); Immature Grans % 0.1; Lymphocytes % 17.8; MCH 30.5 pg (27.0-33.0); MCHC 32.7 % (32.0-36.0); MCV 93 fL (80-95); MPV 9.7 fL (8.0-11.0); Monocytes % 8.6; Neutrophils % 69.2; Platelet Count 218 10^3/uL (130-400); RBC 4.17 10^6/uL (3.93-5.22); RDW 13.1 % (11.7-14.6); RDW-SD 44.9 fL; WBC 7.59 10^3/uL (4.4-10.8)
[2023-11-08 08:37] LABS: ALT 17 U/L (14-59); AST 15 U/L (15-37); Albumin 3.7 g/dL (3.4-5.0); Alkaline Phosphatase 68 U/L (46-116); Anion Gap 7.3 mmol/L (3-11); BUN 9 mg/dL (7-18); Bilirubin, Total 1.1 mg/dL (0.2-1.0); CO2 30.7 mmol/L (21.0-32.0); CREATININE 0.8 mg/dL (0.55-1.02); Calcium 9.1 mg/dL (8.5-10.1); Calculated LDL 125 mg/dL (<100); Chloride 109 mmol/L (98-107); Cholesterol 198 mg/dL (<200); Estimated GFR 79.71 (mL/min/1.73m2); Glucose 97 mg/dL (74-106); HDL Cholesterol 63 mg/dL (40-60); Potassium 3.9 mmol/L (3.5-5.1); Sodium 147 mmol/L (136-145); TSH (W/Ref FT4) 2.69 uIU/mL (0.36-3.74); Total Protein 6.9 g/dL (6.4-8.2); Triglyceride 52 mg/dL (<150)
[2023-11-08 19:10] LABS: Hepatitis C Ab w Rflx HCV PCR Negative (Negative)
== END 2023-11-08 05:37 | disposition home or self-care (01) ==
LOC: LBO 05:36
PROVIDERS: PCP Nurse Practitioner Family; Visit Provider Nurse Practitioner Family
DX: Z00.00 Encounter for general adult medical examination without abnormal findings (principal)
CPT/HCPCS: 36415; 80053; 80061; 86803; 84443; 85025

== ENCOUNTER → 2023-11-16 00:50 | Outpatient (CLI) | payer MEDICARE, SELFPAY ==
--- NOTE | 2023-11-16 12:30 | DI.US_ITS ---
APPROVED REPORT EXAM: Comprehensive 2D, Doppler, and color-flow Echocardiogram Patient Location: Out-Patient Protein Specialist: Desiree Gregory RDCS (AE) Indications: Check LV function, Frequent PVC, Cardiomyopathy, Atrial Fibrillation Other Information Study Quality: Fair. Technically limited study due to body habitus. Conclusion Normal left ventricular wall thickness and chamber size. EF is 60%. Wall motion is normal Both atria are borderline dilated Right ventricular systolic function is normal Atrial septum is thin and hypermobile There are no structural valvular abnormalities Wall motion Left Ventricle The left ventricle is normal size. Technically limited apical imaging. The overall left ventricular s ystolic function appears normal. There is normal left ventricular wall thickness. There is normal LV segmental wall motion. There is no ventricular septal defect visualized. LVEF is 60% Right Ventricle Right ventricle is grossly normal in size. Right ventricular systolic function is grossly normal. Atria Left atrium is borderline dilated. Right atrium is borderline dilated. Atrial septal aneurysm is pres ent. Aortic Valve The aortic valve is normal in structure. Aortic valve is trileaflet. There is no aortic valvular sten osis. No aortic regurgitation is present. Mitral Valve The mitral valve is normal in structure. No evidence of mitral valve stenosis. Trace mitral regurgit ation. Tricuspid Valve The tricuspid valve is normal in structure. There is no tricuspid valve stenosis. Trace tricuspid reg urgitation. The RVSP is 22.0 mmHg. Pulmonic Valve The pulmonary valve is normal in structure. There is no pulmonic valvular stenosis. Trace pulmonic re gurgitation. Great Vessels The aortic root is normal in size. The ascending aorta is normal in size. Aortic arch is normal in ca liber. IVC is normal in size and collapses >50% with inspiration. Pericardium There is no pericardial effusion. 2D Dimensions IVSD d PLAX 0.86 cm F: 0.6-1.0 Ao Root d 2.30 cm F: 2.7 - 3.3 LVPW d PLAX 0.92 cm F: 0.6 - 1.0 Ao Asc Diam d 2.88 cm F: 2.3 - 3.1 LVID d PLAX 4.86 cm F: 3.8 - 5.2 LVDs 3.67 cm F: 2.2 - 3.5 LV EF Teichholz 48.4 % FS 24.42 % LV EDV (Teich) 110.7 mL LV ESV (Teich) 57.1 mL Auto EF LV EDV A4C 99.3 mL LV EDV A2C 145.1 mL LV EDV BP 120.8 mL LV ESV A4C 53.8 mL LV ESV A2C 75.6 mL LV ESV BP 63.7 mL LVEF(%) A4C 45.9 % LVEF(%) A2C 47.9 % LVEF(%) BP 47.2 % LV SV A4C 45.5 ml LV SV A2C 69.5 ml LV SV BP 57.1 ml LV CO A4C 2.4 L/min LV CO A2C 3.6 L/min LV CO BP 3.0 L/min HR A4C 52.40 BPM HR A2C 52.33 BPM LV EDV Index (BP) LV Diastology MV E' medial 0.051 (>0.07 m/s) MV E Vmax 0.39 (0.4-1.3 m/s) MV E/E' MED 7.51 (<14) MV A Vmax 0.65 (0.4-1.3 m/s) MV E' lateral 0.045 (>0.1 m/s) E/A Ratio 0.6 MV E/E' LAT 8.55 (<14) MV E' Average 0.048 m/s MV E/E'(average) 8.00 Aortic Valve AoV Vmax 1.31 m/s LVOT Vmax 0.85 m/s AoV Peak Grad 6.9 mmHg LVOT Peak Grad 2.9 mmHg AoV Area (Vmax) 2.15 cm2 LVOT VTI 0.197 m AoV VTI 0.280 m LVOT Mean Grad 1.7 mmHg AoV Mean Alessio. 0.90 m/s LVOT SV 65.01 mL AoV Mean Grad 3.7 mmHg LVOT Diam s 2.00 cm AoV Area (VTI) 2.32 cm2 Velocity Ratio 0.65 Mitral Valve MV DT 388 (160-240 msec) MV Vmax TIPS 0.59 m/s MV Mean Grad 0.4 (<2mmHg) MV VTI 0.190 m Pulmonary Valve PV Vmax 1.05 (0.5-1.5 m/s) RVOT Vmax 0.73 m/s PV Peak Grad 4.4 mmHg RVOT Peak Gr. 2.2 mmHg PV Mean Alessio 0.81 m/s RVOT VTI 0.138 m PV Mean Grad 2.8 mmHg RVOT Mean Gr. 1.3 mmHg Tricuspid Valve RA Pressure 3.00 mmHg TR Vmax 2.18 m/s TV S' 0.14 m/s TR Peak Grad 19.0 mmHg RVSP (TR) 22.0 mmHg
== END ==
PROVIDERS: PCP Nurse Practitioner Family; Visit Provider Internal Medicine Cardiovascular Disease
DX: I48.0 Paroxysmal atrial fibrillation (principal); I42.8 Other cardiomyopathies; I49.3 Ventricular premature depolarization
CPT/HCPCS: 93306

== ENCOUNTER → 2024-01-03 13:37 | Outpatient (BNVA) | payer MEDICARE, SELFPAY | PROVIDERS: PCP Nurse Practitioner Family; Visit Provider Internal Medicine Cardiovascular Disease | DX: I48.0 Paroxysmal atrial fibrillation (principal); I42.8 Other cardiomyopathies; I49.3 Ventricular premature depolarization | CPT/HCPCS: 99213 ==

== ENCOUNTER 2024-01-08 05:10 | Outpatient (CLI) | payer MEDICARE, SELFPAY ==
[2024-01-08 15:47] LABS: Anion Gap 5.6 mmol/L (3-11); BUN 15 mg/dL (7-18); CO2 30.4 mmol/L (21.0-32.0); CREATININE 0.7 mg/dL (0.55-1.02); Calcium 8.6 mg/dL (8.5-10.1); Chloride 107 mmol/L (98-107); Estimated GFR 93.56 (mL/min/1.73m2); Glucose 75 mg/dL (74-106); Potassium 3.8 mmol/L (3.5-5.1); Sodium 143 mmol/L (136-145)
== END 2024-01-08 05:11 | disposition home or self-care (01) ==
LOC: LBO 05:10
PROVIDERS: PCP Nurse Practitioner Family; Visit Provider Nurse Practitioner Family
DX: I50.20 Unspecified systolic (congestive) heart failure (principal); K52.9 Noninfective gastroenteritis and colitis, unspecified
CPT/HCPCS: 36415; 80048

== ENCOUNTER 2024-01-08 06:41 | Emergency (ER) | payer MEDICARE, SELFPAY ==
[2024-01-08 06:45] VITALS: BP 128/58; PULSE 54; RESP 16; TEMP 36.4; O2SAT 100
--- NOTE | 2024-01-08 07:04 | W.ED.GENAD ---
Discharge Plan Disposition Patient Disposition: Home Condition: Improving Discharge Details Chief Complaint: InsectBite Clinical Impression: Tick bite Primary Care Provider: Zaida Krishna ED Provider: Abebe Gonzales Home Meds and New Rx's Prescriptions: No Action aspirin 81 mg tablet,delayed release (DR/EC) 81 mg PO DAILY Qty: 60 0RF magnesium hydroxide 400 mg (170 mg magnesium) tablet,chewable 400 mg PO DAILY econazole 1 % cream 1 applic topical DAILY PRN (Reason: tinea pedis) Qty: 85 1RF calcium carbonate-vitamin D3 1 EACH capsule 1 ea PO BID olopatadine [Pataday] 0.2 % drops 1 drp Ophthalmic BID PRN Patient Comments: 03-14-18 pt reports that she uses this med PRN. -hb glucosamine [id number] 500-83-400 mg tablet See Rx Instructions PO DAILY Rx Instructions: 2 tabs PO daily; bisoprolol fumarate 10 mg tablet 10 mg PO DAILY Qty: 90 6RF sumatriptan succinate 25 mg tablet 25 - 50 mg PO ONCE PRN (Reason: migraine headache) Qty: 60 1RF Rx Instructions: Take 1 to 2 tablets at onset of migraine; may repeat 2 hours later if incomplete relief ibuprofen 200 MG tablet 2 cap PO PRN PRN Discharge Instructions Instructions: Tick Bite (ED) HPI General Date/Time Provider Initiated Documentation: 01/08/24 06:45. HPI Narrative: 68-year-old female presents with embedded tick left chest wall under left breast, has been likely greater than 36 hours but less than 3 days. No systemic signs of illness. Related Data Home Medications Medication Instructions Recorded Confirmed ibuprofen 200 mg tablet 2 cap PO PRN PRN 05/29/13 01/08/24 calcium carbonate 600 mg-vitamin 1 ea PO BID 03/20/16 01/08/24 D3 10 mcg (400 unit) capsule olopatadine 0.2 % eye drops 1 drp ophthalmic (eye) BID PRN 05/20/18 01/08/24 (Pataday) aspirin 81 mg tablet,delayed 81 mg PO DAILY #60 tabs 11/03/19 01/08/24 release magnesium hydroxide 400 mg (170 mg 400 mg PO DAILY 02/25/20 01/08/24 magnesium) chewable tablet glucosamine HCl 500 mg-msm 83 See Rx Instructions PO DAILY 01/06/21 01/08/24 mg-chondroitin 400 mg tablet econazole 1 % topical cream 1 applic topical DAILY PRN tinea 08/02/22 01/08/24 pedis #85 grams bisoprolol fumarate 10 mg tablet 10 mg PO DAILY #90 tabs 04/10/23 01/08/24 sumatriptan succinate 25 mg tablet 25 - 50 mg (1 - 2 x 25 mg) PO ONCE 08/22/23 01/08/24 PRN migraine headache #60 tab-caps Previous Rx's Medication Instructions Recorded aspirin 81 mg tablet,delayed 81 mg PO DAILY #60 tabs 11/03/19 release econazole 1 % topical cream 1 applic topical DAILY PRN tinea 08/02/22 pedis #85 grams bisoprolol fumarate 10 mg tablet 10 mg PO DAILY #90 tabs 04/10/23 sumatriptan succinate 25 mg tablet 25 - 50 mg (1 - 2 x 25 mg) PO ONCE 08/22/23 PRN migraine headache #60 tab-caps Allergies Allergy/AdvReac Type Severity Reaction Status Date / Time alcohol AdvReac Unknown Lightheaded Verified 01/08/24 06:48 ness General Stated Complaint: InsectBite GAEL: 3 Review of Systems Narrative: Review of Systems Constitutional: negative Eyes: negative ENT: negative Cardiovascular: negative Respiratory: negative Gastrointestinal: negative : negative Musculoskeletal: negative Skin: Tick bite Neurologic: negative Psych: negative Exam Narrative Exam Narrative: Physical Examination General: alert, awake, cooperative, resting comfortably, no acute distress HEENT: normocephalic, atraumatic; PERRL, EOM intact, conjunctiva normal; no nasal discharge; moist mucous membranes, oral and pharyngeal mucosa normal, tolerating secretions Neck: supple, trachea midline; full ROM Skin: Nonengorged tick left chest wall, minimal localized erythema at attachment site without erythema migrans rash purulence fluctuance or other skin changes Neuro: AAOx3, normal speech, moving all extremities Course Vital Signs Vital signs: Vital Signs Temperature 36.4 C L 01/08/24 06:45 Pulse 54 L 01/08/24 06:45 Respiratory Rate 16 01/08/24 06:45 Blood Pressure 128/58 L 01/08/24 06:45 Pulse Oximetry 100 01/08/24 06:45 Temperature 36.4 C L 01/08/24 06:45 Temperature Source Temporal Artery Scan 01/08/24 06:45 Pulse 54 L 01/08/24 06:45 Respiratory Rate 16 01/08/24 06:45 Respiratory Effort Normal, Non-Labored 01/08/24 06:50 Blood Pressure 128/58 L 01/08/24 06:45 Blood Pressure Position Sitting 01/08/24 06:45 Pulse Oximetry 100 01/08/24 06:45 Oxygen Delivery Method Room Air 01/08/24 06:45 Oxygen Flow Rate 0 01/08/24 06:45 Medical Decision Making 68-year-old female presents with tick embedded to left chest wall, likely greater than 36 hours however less than 72 hours, localized erythema at attachment site without evidence of erythema migrans, no fluctuance purulence or other signs of infection, patient hemodynamically stable nontoxic no systemic signs of illness. Tick is not engorged, easily removed with forceps at bedside. Empiric dose of doxycycline 20 mg given. Home care instructions and return precautions given. 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 Overactive bladder due to prolapse of female genital organ (Chronic) Medical History (Updated 01/08/24 @ 07:07 by Abebe Gonzales MD) Ductal carcinoma in situ (DCIS) of right breast (2019) s/p mastectomy, [place] [facility] [place]itis of both lower extremities Ocular herpes Surgical History Status post partial mastectomy of right breast (01/23/20) 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 Daughter No problems noted. Social History Smoking/Tobacco Use Status: Never Second Hand Exposure: No Smoking risk assessment performed?: Yes Alcohol Intake: never Drug use: Never Substance use type: does not use Caregiver/Support person: No Household members: spouse Communication Needs: None current occupation: CLINICAL PSYCHOLOGIST Pets and animals: No Sexually active: Yes Do you think of yourself as: straight/heterosexual Current gender identity: female What is your relationship status?: How often do you talk on the phone with friends or family?: three or more times per week How often do you get together with friends or relatives?: twice per week How often do you attend mormonism or jehovah's witness services?: decline to answer Do you belong to any clubs or organized social groups?: yes Panel score (0-1 are the most socially isolated patients): 3 Duration: 30-45 minutes/day Frequency: daily Do you feel safe at home: Yes Do you feel safe in your relationship?: Yes Additional Social history: pt is here with family; interacts well
[2024-01-08] MEDS: Doxycycline Hyclate 100 MG CAP 200 MG PO (07:11)
== END 2024-01-08 07:11 | disposition home or self-care (01) ==
LOC: ER 07:18
PROVIDERS: Emergency Provider Emergency Medicine; PCP Nurse Practitioner Family
DX: S20.162A Insect bite (nonvenomous) of breast, left breast, initial encounter (principal); W57.XXXA Bitten or stung by nonvenomous insect and other nonvenomous arthropods, initial encounter
CPT/HCPCS: 99283

== ENCOUNTER 2024-02-02 16:18 | Emergency (ER) | payer MEDICARE, SELFPAY ==
--- NOTE | 2024-02-02 16:15 | RT.EKG_ITS ---
APPROVED REPORT Exam: Resting ECG Reason for Exam: Fall Patient Location: E HR:56 bpm ECG Measurements Heart Rate 56 AXIS IN 198 P 137 QRSd 109 QRS 21 QT 415 T 72 QTc 399 Conclusion Sinus or ectopic atrial bradycardia...P axis (-45,135), rate< 60 bradycardia, consider sinus v ectopic supraventricular
[2024-02-02 16:23] VITALS: BP 120/64; PULSE 57; RESP 18; TEMP 36.7; O2SAT 100
--- NOTE | 2024-02-02 16:30 | DI.CT_ITS ---
Exam(s) CT HEAD FACIAL WO EXAM: CT HEAD FACIAL WO CLINICAL HISTORY: Fall, Headache. TECHNIQUE: Imaging Protocol: Axial computed tomography images with coronal and sagittal reformatted images were created and reviewed COMPARISON: CT HEAD WITHOUT CONTRAST from 01/02/2009 FINDINGS: CT Head: Ventricles and Extra axial spaces: Normal in size and morphology for the patient's age. Hemorrhage: None. Cerebral parenchyma: No mass effect is identified. No acute territorial infarct is present. Midline shift: None. Brainstem/Cerebellum: Normal. Calvarium: Normal. Visualized Paranasal sinuses/Mastoids: There is opacification of the left sphenoid sinus. The remain ing visualized paranasal sinuses are clear as are the mastoid air cells. Soft Tissues: Unremarkable. Orbits: There is a prosthetic left eye. CT Face: Facial Bones: No definite fracture is noted in facial bones. Sinuses and Mastoids: There is mucosal thickening in the left maxillary sinus. There is opacificati on of the left sphenoid sinus. The remaining visualized paranasal sinuses are clear. The mastoid ai r cells are well pneumatized. Globes, extraocular muscles, optic nerves and retrobulbar fat: The patient has a left eye prosthesis . Upper aerodigestive tract: Normal. Mandible and bilateral temporomandibular joints: Normal. Soft tissues: There is soft tissue swelling of the right cheek. IMPRESSION: 1. No acute intracranial process. 2. Soft tissue swelling of the right cheek. 3. Paranasal sinusitis. 4. No acute facial fracture. RADIATION DOSE DELIVERED: Total DLP Total DLP DATA REPOSITORY: All CT scans at this facility are submitted to the National Radiology Data Registry (NRDR) Dose Index Registry (DIR) with the [employer] (A[employer]). RADIATION OPTIMIZATION: All CT scans at this facility use at least one of these dose optimization te chniques: automated exposure control; mA and/or kV adjustment per patient size (includes targeted exa ms where dose is matched to clinical indication); or iterative reconstruction.
--- NOTE | 2024-02-02 16:30 | DI.RAD_ITS ---
Exam(s) XR RIBS RT W PA LAT CHEST EXAM: XR RIBS RT W PA LAT CHEST CLINICAL HISTORY: Fall, Right anterior rib pain TECHNIQUE: 2D digital imaging was performed.Four images were obtained. COMPARISON: CR XR CHEST 2V PA LATERAL from 09/11/2018 FINDINGS: MEDIASTINUM: Normal. HEART: Normal. PULMONARY VASCULATURE: Normal. LUNGS: No focal consolidating infiltrates are present. PLEURAL SPACE: No pleural effusion or pneumothorax. BONE:Normal limits for the patient's age. There is a mild right convex curvature of the thoracic spi ne. RIGHT RIBS: Normal. OTHER FINDINGS:Normal. IMPRESSION: 1. No acute pulmonary findings. 2. Unremarkable right ribs. DATA REPOSITORY: RADIATION DOSE DELIVERED:
--- NOTE | 2024-02-02 16:47 | ED.GENADUL_ITS ---
Discharge Plan Disposition Patient Disposition: Home Condition: Stable Discharge Details Clinical Impression: Laceration of lower lip, Closed head injury Primary Care Provider: Zaida Krishna ED Provider: Brisa Amanda Home Meds and New Rx's Prescriptions: Continued magnesium hydroxide 400 mg (170 mg magnesium) tablet,chewable 400 mg PO DAILY econazole 1 % cream 1 applic topical DAILY PRN (Reason: tinea pedis) Qty: 85 1RF calcium carbonate-vitamin D3 1 EACH capsule 1 ea PO BID olopatadine [Pataday] 0.2 % drops 1 drp Ophthalmic BID PRN Patient Comments: 03-14-18 pt reports that she uses this med PRN. -hb glucosamine [id number]-[id number] 500-83-400 mg tablet See Rx Instructions PO DAILY Rx Instructions: 2 tabs PO daily; bisoprolol fumarate 10 mg tablet 10 mg PO DAILY Qty: 90 6RF sumatriptan succinate 25 mg tablet 25 - 50 mg PO ONCE PRN (Reason: migraine headache) Qty: 60 1RF Rx Instructions: Take 1 to 2 tablets at onset of migraine; may repeat 2 hours later if incomplete relief No Action aspirin 81 mg tablet,delayed release (DR/EC) 81 mg PO DAILY Qty: 60 0RF ibuprofen 200 MG tablet 2 cap PO PRN PRN Discharge Instructions Instructions: Wound Care ED, Minor Head Injury, Adult ED, Laceration Repair With Glue ED Additional Instructions: No evidence of rib fractures, no intracranial head bleed or abnormality. You do have a small laceration noted to your lower lip and surrounding contusion or bruising. Please continue to use ice, take Tylenol every 4-6 hours as needed for pain and swelling, return to the ER be seen sooner for any signs of infection including increased redness red streaks drainage, fever or increased pain. Also return or be seen for any vomiting, confusion, chest pain vomiting blood in your stool abdominal pain or any concerns. Follow up with primary care provider in 3-5 days. Return to ED sooner if any worsening or concerns. Consider holding the aspirin for 1-3 days until healed. Referrals: Zaida Krishna, [employer] [Primary Care Provider] - 5 days (ER follow-up) HPI General Mode of arrival: ambulatory . Date/Time Provider Initiated Documentation: 02/02/24 16:33 . Limitations to Documentation: no limitations . Information obtained by: patient, RN notes reviewed and old records reviewed . HPI Narrative: 58-year-old female presents to the ER with a chief complaint of mechanical fall which occurred just prior to arrival. She tripped while walking to the bathroom and fell headfirst into a towel rack. She did fall away to the floor did not lose consciousness. She is alert and oriented x 4 upon arrival. She does have a right lower lip laceration with bleeding controlled, she does take aspirin 81 mg daily. She denies any neck pain or back pain, she does have some right sided anterior chest wall tenderness with palpation. Denies any shortness of breath. Denies any dizziness or blurry vision. She does have a left eye prosthesis. Pupils are PERRLA on the right. Teeth are intact. Related Data Home Medications Medication Instructions Recorded Confirmed ibuprofen 200 mg tablet 2 cap PO PRN PRN 05/29/13 01/08/24 calcium carbonate 600 mg-vitamin 1 ea PO BID 03/20/16 01/08/24 D3 10 mcg (400 unit) capsule olopatadine 0.2 % eye drops 1 drp ophthalmic (eye) BID PRN 05/20/18 01/08/24 (Pataday) aspirin 81 mg tablet,delayed 81 mg PO DAILY #60 tabs 11/03/19 01/08/24 release magnesium hydroxide 400 mg (170 mg 400 mg PO DAILY 02/25/20 01/08/24 magnesium) chewable tablet glucosamine HCl 500 mg-[facility] [place] 83 See Rx Instructions PO DAILY 01/06/21 01/08/24 mg-chondroitin 400 mg tablet econazole 1 % topical cream 1 applic topical DAILY PRN tinea 08/02/22 01/08/24 pedis #85 grams bisoprolol fumarate 10 mg tablet 10 mg PO DAILY #90 tabs 04/10/23 01/08/24 sumatriptan succinate 25 mg tablet 25 - 50 mg (1 - 2 x 25 mg) PO ONCE 08/22/23 01/08/24 PRN migraine headache #60 tab-caps Previous Rx's Medication Instructions Recorded aspirin 81 mg tablet,delayed 81 mg PO DAILY #60 tabs 11/03/19 release econazole 1 % topical cream 1 applic topical DAILY PRN tinea 08/02/22 pedis #85 grams bisoprolol fumarate 10 mg tablet 10 mg PO DAILY #90 tabs 04/10/23 sumatriptan succinate 25 mg tablet 25 - 50 mg (1 - 2 x 25 mg) PO ONCE 08/22/23 PRN migraine headache #60 tab-caps Allergies Allergy/AdvReac Type Severity Reaction Status Date / Time alcohol AdvReac Unknown Lightheaded Verified 01/08/24 06:48 ness General Stated Complaint: Trauma GAEL: 3 Review of Systems All systems reviewed & are unremarkable except as noted in HPI and below Constitutional Constitutional: Reports as per HPI and Reports headache(s) ENT Ears, Nose, Mouth, and Throat: Reports as per HPI, Reports headache(s) and Reports other (lip laceration) Cardiovascular Cardiovascular: Denies chest pain and Denies dyspnea Respiratory Respiratory: Denies dyspnea and Denies wheezing Integumentary/Breasts Skin/Breast: Reports wounds (Right lower lip) Neurologic Neurologic: Reports headache(s) Allergic/Immunologic Allergic/Immunologic: Denies wheezing Exam Narrative Exam Narrative: General: Well Developed, Awake and Alert, conversant. Skin: Warm and Dry HEENT: Head: No palpable deformities, Normocephalic Eyes: Right pupil PERRLA, EOM's intact. No periorbital eccymosis or step off, does have a prosthetic eye in the left orbit Ears: Canal patent. Tympanic membranes are clear . No joseph's sign, no hemptympanum. Nose/Face: Facial bones nontender to palpation and stable with manipulation. Mouth/Throat: Right lateral upper and lower lip contusion noted laceration noted to right lower lip. Teeth and mandible are intact. See diagram below. Neck: No midline tenderness, no step off, no deformity to palpation of C-spine. Trachea midline. Chest: No surface trauma. Right anterior tenderness with palpation, without crepitus or deformity. Lungs clear to ausculatation bilaterally. Heart: RRR, no rubs, murmurs or gallop. Abdomen: No abrasions, ecchymosis, or surface trauma. Nondistended. Nontender to palpation no guarding, rebound, or rigidity. Pelvis: Nontender to palpation and stable to compression. Femoral pulses strong and equal Extremities: no surface trauma. Sensation intact. Peripheral pulses intact and equal. Neuro: ANO x4, GCS 15, cranial nerves II through XII intact. Motor and sensory exam nonfocal. Reflexes are symmetric. HENMT Head: normal to inspection, no Joseph's sign and no raccoon eyes Face images: 2 1. Bruising Mouth: lip abnormal right lower laceration (See diagram) Mouth/tongue images: 2 1. Approximately 0.5 cm laceration which does not extend through the vermilion border, is irregular. 2. Lap superficial small venous ooze. 3. Contusion 4. Contusion Teeth and gingiva: gingiva normal and fair dentition Throat: posterior oropharynx normal and uvula midline Course Vital Signs Vital signs: Vital Signs Temperature 36.7 C 02/02/24 16:23 Pulse 57 L 02/02/24 16:23 Respiratory Rate 18 02/02/24 16:23 Blood Pressure 120/64 02/02/24 16:23 Pulse Oximetry 100 02/02/24 16:23 Temperature 36.7 C 02/02/24 16:23 Pulse 57 L 02/02/24 16:23 Respiratory Rate 18 02/02/24 16:23 Blood Pressure 120/64 02/02/24 16:23 Pulse Oximetry 100 02/02/24 16:23 Oxygen Delivery Method Room Air 02/02/24 16:23 Oxygen Flow Rate 0 02/02/24 16:23 Medical Decision Making 58-year-old female presents to the ER with a chief complaint of mechanical fall which occurred just prior to arrival. She tripped while walking to the bathroom and fell headfirst into a towel rack. She did fall away to the floor did not lose consciousness. She is alert and oriented x 4 upon arrival. She does have a right lower lip laceration with bleeding controlled, she does take aspirin 81 mg daily. She denies any neck pain or back pain, she does have some right sided anterior chest wall tenderness with palpation. Denies any shortness of breath. Denies any dizziness or blurry vision. She does have a left eye prosthesis. Pupils are PERRLA on the right. Teeth are intact. She is also complaining of a headache shortly after arrival. Past medical history includes ductal carcinoma of right breast in 2020, cellulitis lower extremities, mastectomy right breast,. Paroxysmal atrial fibrillation, nonischemic cardiomyopathy. EKG was done by director of staff development in triage. There is no available for review, no STEMI or ST elevation noted, please see official report. Patient is overnight x-ray is now complaining of some right knee pain. Right knee 3 view x-ray added on. Will give a hinged knee brace. Patient declined knee brace. Right lower lip laceration approximately 5 cm irregular, is well-approximated, there is an additional flap just medial to this, bleeding is controlled at this time. There is also surrounding swelling contusion to her upper lip and right cheek. Laceration approximated with tissue adhesive, discussed home care and strict return instructions to return for any signs of infection, vomiting dizziness confusion or any concerns. I did discuss that she will be sore for the next couple of days they verbalized understanding. This text was generated using Trippyation system, please disregard any oddities of phrase or misspellings. Medical Records Medical records reviewed: Yes I reviewed the patient's medical records. Imaging Data Radiologic Study: Imaging: CT Scan Radiologist's impression: V rad report: Exam: CT Head Without Contrast Exam date and time: 02/02/2024 4:51 PM Age: 68 years old Clinical indication: Injury or trauma; Blunt trauma (contusions or hematomas); Maxilla; Patient HX: Fall, headache TECHNIQUE: Imaging protocol: Computed tomography of the head without contrast. COMPARISON: No relevant prior studies available. FINDINGS: Brain: No intracranial hemorrhage. No cerebral edema. No mass or mass effect. No large territory acute CVA. Cerebral ventricles: No ventriculomegaly. Paranasal sinuses: Visualized sinuses are unremarkable. No fluid levels. Mastoid air cells: Visualized mastoid air cells are well aerated. Orbital cavities: Left ocular globe prosthesis. Right ocular globe with appearance suggesting a previous lens replacement surgery. Recommend clinical correlation. Bones: Intact skull. No fractures. Soft tissues: Scalp soft tissues are unremarkable. IMPRESSION: 1. No intracranial hemorrhage. 2. Unremarkable CT maxillofacial without contrast, V rad report FINDINGS: Orbital cavities: Right ocular globe appears intact. There is a left ocular prosthesis. Paranasal sinuses: Chronic sinus disease with left maxillary mucoperiosteal thickening. No air-fluid levels. The left aspect of the sphenoid sinus also shows chronic appearing opacification. Bones: No facial bone fracture. Soft tissues: Soft tissues of the facial region remarkable for a right maxillary contusion with subcutaneous fatty stranding and small hematoma. No foreign body. No soft tissue emphysema. IMPRESSION: 1. Right maxillary soft tissue contusion. 2. No facial bone fracture. 3. Chronic sinus disease. 4. Left ocular globe prosthesis. Thank you for allowing us to participate in the care of your patient. Dictated and Authenticated by: Mick Jernigan MD Radiologic Study #2: Imaging: X-Ray Radiologist's impression: V rad report of chest and ribs shows no acute rib fracture evident, no acute infiltrates no pleural changes hyperinflation isolation suggest emphysema and COPD thoracic spine degenerative changes and dextroscoliosis. Please see official report. Radiologic Study #3: Imaging: X-Ray Radiologist's impression: Imaging protocol: Radiologic exam of the right knee. Views: 3 views. COMPARISON: No relevant prior studies available. FINDINGS: Bones/joints: No acute fracture. No dislocation. Degenerative joint features. Small joint effusion. Appearance suggesting intra-articular calcified foci which could represent synovial osteochondromas. One is in the region of the posterior intercondylar notch measuring 2 cm. The 2nd is located laterally measuring 11 mm. Soft tissues: Prepatellar soft tissue swelling consistent with contusion/hematoma. No foreign body. IMPRESSION: 1. No acute fracture. 2. Degenerative joint changes. 3. Suggestion of synovial osteochondromas. 4. Prepatellar soft tissue contusion/hematoma. No foreign body. Thank you for allowing us to participate in the care of your patient. Dictated and Authenticated by: Mick Jernigan Quality:SDOH Health Related Social Needs: 2 No Data to Display PFSH All Active Problems (Updated 02/02/24 @ 18:58 by Brisa Amanda NP) Closed head injury (Acute) Laceration of lower lip (Acute) Tick bite (Acute) Chronic diarrhea (Acute) Nonischemic cardiomyopathy (Chronic) History of right breast cancer (Chronic 2019) DCIS s/p partial mastectomy, radiation Paroxysmal atrial fibrillation (Chronic) Frequent PVCs (Chronic) Hyperlipidemia (Chronic) Osteopenia (Chronic) Prosthetic eye globe (Chronic) Left eye Sensorineural hearing loss, bilateral (Chronic) Urinary incontinence (Chronic) 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 Overactive bladder due to prolapse of female genital organ (Chronic) Medical History Ductal carcinoma in situ (DCIS) of right breast (2019) s/p mastectomy, [place] [facility] [place]ulitis of both lower extremities Ocular herpes Surgical History Status post partial mastectomy of right breast (01/23/20) 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 Daughter No problems noted. Social History Smoking/Tobacco Use Status: Never Second Hand Exposure: No Smoking risk assessment performed?: Yes Alcohol Intake: never Drug use: Never Substance use type: does not use Caregiver/Support person: No Household members: spouse Communication Needs: None current occupation: CLINICAL PSYCHOLOGIST Pets and animals: No Sexually active: Yes Do you think of yourself as: straight/heterosexual Current gender identity: female What is your relationship status?: How often do you talk on the phone with friends or family?: three or more times per week How often do you get together with friends or relatives?: twice per week How often do you attend yarsanism or confucianism services?: decline to answer Do you belong to any clubs or organized social groups?: yes Panel score (0-1 are the most socially isolated patients): 3 Duration: 30-45 minutes/day Frequency: daily Do you feel safe at home: Yes Do you feel safe in your relationship?: Yes Additional Social history: pt is here with family; interacts well
--- NOTE | 2024-02-02 17:00 | DI.RAD_ITS ---
Exam(s) XR KNEE RT 3V AP,LAT,RIGO EXAM: XR KNEE RT 3V AP,LAT,RIGO CLINICAL HISTORY: Fall, Right Knee pain. TECHNIQUE: 2D digital imaging was performed of the right knee. Four views obtained. AP, lateral and PA tunnel views were obtained. COMPARISON: No priors for comparison. FINDINGS: BONES: No acute fracture is present. No bony destructive lesion is seen. JOINTS: Moderate degenerative changes are seen in the right knee characterized by joint space narrowi ng and osteophytes. There is a small joint effusion. There are calcifications which appear to be in tra-articular may represent loose body/synovial osteochondromatosis. SOFT TISSUE: There is soft tissue swelling in the prepatellar region. IMPRESSION: No acute fracture or dislocation. DATA REPOSITORY: RADIATION DOSE DELIVERED:
--- NOTE | 2024-02-02 17:15 | DI.VRAD_ITS ---
PROCEDURE INFORMATION: Exam: CT Head Without Contrast Exam date and time: 02/02/2024 4:51 PM Age: 68 years old Clinical indication: Injury or trauma; Blunt trauma (contusions or hematomas); Maxilla; Patient HX: Fall, headache TECHNIQUE: Imaging protocol: Computed tomography of the head without contrast. COMPARISON: No relevant prior studies available. FINDINGS: Brain: No intracranial hemorrhage. No cerebral edema. No mass or mass effect. No large territory acute CVA. Cerebral ventricles: No ventriculomegaly. Paranasal sinuses: Visualized sinuses are unremarkable. No fluid levels. Mastoid air cells: Visualized mastoid air cells are well aerated. Orbital cavities: Left ocular globe prosthesis. Right ocular globe with appearance suggesting a previous lens replacement surgery. Recommend clinical correlation. Bones: Intact skull. No fractures. Soft tissues: Scalp soft tissues are unremarkable. IMPRESSION: 1. No intracranial hemorrhage. 2. Unremarkable noncontrast CT head. PROCEDURE INFORMATION: Exam: CT Maxillofacial Without Contrast Exam date and time: 02/02/2024 4:51 PM Age: 68 years old Clinical indication: Injury or trauma; Blunt trauma (contusions or hematomas); Maxilla; Patient HX: Fall, headache TECHNIQUE: Imaging protocol: Computed tomography of the face without contrast. COMPARISON: No relevant prior studies available. FINDINGS: Orbital cavities: Right ocular globe appears intact. There is a left ocular prosthesis. Paranasal sinuses: Chronic sinus disease with left maxillary mucoperiosteal thickening. No air-fluid levels. The left aspect of the sphenoid sinus also shows chronic appearing opacification. Bones: No facial bone fracture. Soft tissues: Soft tissues of the facial region remarkable for a right maxillary contusion with subcutaneous fatty stranding and small hematoma. No foreign body. No soft tissue emphysema. IMPRESSION: 1. Right maxillary soft tissue contusion. 2. No facial bone fracture. 3. Chronic sinus disease. 4. Left ocular globe prosthesis. Dictated and Authenticated by: Mick Jernigan MD. Ordering:MELA Ledezma MD
--- NOTE | 2024-02-02 17:17 | DI.VRAD_ITS ---
PROCEDURE INFORMATION: Exam: XR Right Knee Exam date and time: 02/02/2024 5:06 PM Age: 68 years old Clinical indication: Other: Fall right knee pain TECHNIQUE: Imaging protocol: Radiologic exam of the right knee. Views: 3 views. COMPARISON: No relevant prior studies available. FINDINGS: Bones/joints: No acute fracture. No dislocation. Degenerative joint features. Small joint effusion. Appearance suggesting intra-articular calcified foci which could represent synovial osteochondromas. One is in the region of the posterior intercondylar notch measuring 2 cm. The 2nd is located laterally measuring 11 mm. Soft tissues: Prepatellar soft tissue swelling consistent with contusion/hematoma. No foreign body. IMPRESSION: 1. No acute fracture. 2. Degenerative joint changes. 3. Suggestion of synovial osteochondromas. 4. Prepatellar soft tissue contusion/hematoma. No foreign body. Dictated and Authenticated by: Mick Jernigan MD. Ordering:MELA Ledezma MD
--- NOTE | 2024-02-02 17:20 | DI.VRAD_ITS ---
PROCEDURE INFORMATION: Exam: XR Right Ribs Exam date and time: 02/02/2024 5:01 PM Age: 68 years old Clinical indication: Other: Fall, right anterior rib pain TECHNIQUE: Imaging protocol: Radiologic exam of the right ribs. Views: 2 views. COMPARISON: CR XR CHEST 2V PA LATERAL 09/11/2018 8:09 PM FINDINGS: Bones/joints: Right ribs are normal in course and caliber. No expansile or lytic bone lesions. No blastic changes. No fracture is evident. Right shoulder girdle is unremarkable in appearance. Soft tissues: Normal. IMPRESSION: No rib fracture evident. PROCEDURE INFORMATION: Exam: XR Chest Exam date and time: 02/02/2024 5:01 PM Age: 68 years old Clinical indication: Other: Fall, right anterior rib pain TECHNIQUE: Imaging protocol: Radiologic exam of the chest. Views: 2 views. COMPARISON: CR XR CHEST 2V PA LATERAL 09/11/2018 8:09 PM FINDINGS: Lungs: Hyperinflation suggesting underlying emphysema/COPD. No acute infiltrates or consolidation. Pleural spaces: No pleural effusion or pneumothorax. Heart/Mediastinum: Normal heart size. Normal mediastinal contour. Bones/joints: Degenerative thoracic spine and dextroscoliosis. No acute skeletal findings. IMPRESSION: 1. No acute infiltrates. 2. No acute pleural change. 3. Hyperinflation suggesting emphysema/COPD. 4. Thoracic spine degenerative changes and dextroscoliosis. Dictated and Authenticated by: Mick Jernigan MD. Ordering:MELA Ledezma MD
[2024-02-02 17:21] VITALS: BP 154/54; PULSE 54; RESP 20; O2SAT 98
[2024-02-02] MEDS: Acetaminophen 500 MG TAB PO (18:51)
== END 2024-02-02 19:04 | disposition home or self-care (01) ==
PROVIDERS: Emergency Provider Registered Nurse Emergency; PCP Nurse Practitioner Family
DX: S01.511A Laceration without foreign body of lip, initial encounter (principal); S09.90XA Unspecified injury of head, initial encounter; R51.9 Headache, unspecified; R07.89 Other chest pain; W01.10XA Fall on same level from slipping, tripping and stumbling with subsequent striking against unspecified object, initial encounter
CPT/HCPCS: 73562; 93005; 99284; 70450; 70486; 71046; 71100; 93010; 99283

== ENCOUNTER 2024-04-17 02:15 | Outpatient (CLI) | payer MEDICARE, SELFPAY ==
--- NOTE | 2024-04-17 13:30 | DI.MAMMO_ITS ---
Exam(s) MAMMO DIAGNOSTIC BI EXAM: MAMMO DIAGNOSTIC BI CLINICAL HISTORY: bilateral breast pain, hx of right breast ca 2020, PAIN BOTH BREASTS, N64.4 TECHNIQUE: Mammograms were interpreted according to the usual protocol including computer analysis w Volt CAD system, tomosynthesis and C-view imaging. COMPARISON: 2015 through 2023 FINDINGS: The breasts are composed of heterogeneously dense fibroglandular densities, Breast Density category C . No suspicious masses or suspicious microcalcifications are seen. Post lumpectomy scarring in the upp er outer quadrant of the right breast. No skin thickening or abnormal axillary lymph nodes are seen. There has been no significant change from prior exams. IMPRESSION: BI-RADS Category 2 - Benign Findings Yearly screening mammography is recommended. Breast Density Category C, heterogeneously Dense. The mammogram demonstrates the patient's breast tissue is dense. Dense breast tissue is very common a nd is not abnormal but dense breast tissue can make it harder to find cancer on a mammogram. Also, de nse breast tissue may increase breast cancer risk. This information about the result of the mammogram report was provided to the patient to raise their awareness. Use this report when you speak with the patient about their risks for breast cancer, which includes their family history. At that time, you may recommend additional screening tests (Ultrasound or MRI) as they might be useful based on their r isk. A negative radiographic report should not delay biopsy if a dominant or clinically suspicious mass is present. Up to ten percent of cancers are not identified on mammography. A negative report may reinforce clinical impression. Adenosis and dense breasts may obscure an underlying neoplasm. False positive reports average 6 to 10%.
== END 2024-04-17 02:35 ==
LOC: DI 02:15
PROVIDERS: PCP Nurse Practitioner Family; Visit Provider Nurse Practitioner Family
DX: N64.4 Mastodynia (principal); Z85.3 Personal history of malignant neoplasm of breast; R92.333 Mammographic heterogeneous density, bilateral breasts
CPT/HCPCS: 77062; 77066; G0279

== ENCOUNTER 2024-07-25 21:05 | Emergency (ER) | payer MEDICARE, SELFPAY ==
--- NOTE | 2024-07-25 21:00 | DI.RAD_ITS ---
Exam(s) XR WRIST LT COMPLETE EXAM: XR WRIST LT COMPLETE CLINICAL HISTORY: Fall, distal forearm pain. TECHNIQUE: 2D digital imaging was performed. Three views. COMPARISON: No exams were available for comparison FINDINGS: BONES: No acute fracture is present. No bony destructive lesion is seen. JOINTS: The carpal bones are normally aligned. SOFT TISSUE: Soft tissue swelling. IMPRESSION: Soft tissue swelling. No evidence of fracture. DATA REPOSITORY: RADIATION DOSE DELIVERED:
[2024-07-25 21:09] VITALS: BP 167/71; PULSE 69; RESP 18; TEMP 36; O2SAT 100
[2024-07-25] MEDS: Ibuprofen 600 MG TAB PO (21:21)
[2024-07-25] MEDS: Acetaminophen 500 MG TAB 1000 MG PO (21:21)
--- NOTE | 2024-07-25 21:25 | ED.GENADUL_ITS ---
Discharge Plan Disposition Patient Disposition: Home Condition: Stable Discharge Details Clinical Impression: Contusion of left wrist, Paroxysmal atrial fibrillation, Hyperlipidemia, Nonischemic cardiomyopathy Primary Care Provider: Zaida Krishna ED Provider: Zeynep Guzmán Home Meds and New Rx's Prescriptions: No Action aspirin 81 mg tablet,delayed release (DR/EC) 81 mg PO DAILY Qty: 60 0RF magnesium hydroxide 400 mg (170 mg magnesium) tablet,chewable 400 mg PO DAILY econazole 1 % cream 1 applic topical DAILY PRN (Reason: tinea pedis) Qty: 85 1RF calcium carbonate-vitamin D3 1 EACH capsule 1 ea PO BID olopatadine [Pataday] 0.2 % drops 1 drp Ophthalmic BID PRN Patient Comments: 03-14-18 pt reports that she uses this med PRN. -hb glucosamine [id number] 500-83-400 mg tablet See Rx Instructions PO DAILY Rx Instructions: 2 tabs PO daily; sumatriptan succinate 25 mg tablet 25 - 50 mg PO ONCE PRN (Reason: migraine headache) Qty: 60 1RF Rx Instructions: Take 1 to 2 tablets at onset of migraine; may repeat 2 hours later if incomplete relief bisoprolol fumarate 10 mg tablet 10 mg PO DAILY Qty: 90 6RF clotrimazole [Clotrimazole AF] 1 % cream 1 applic topical BID Qty: 45 3RF Rx Instructions: BID to finger nails and toenails for 4-6 weeks ibuprofen 200 MG tablet 2 cap PO PRN PRN Discharge Instructions Instructions: Minor Contusion ED Additional Instructions: You were seen in the emergency department today for evaluation after a fall and were found to have bruising and swelling of your left wrist. In our department he had a full physical examination performed, had an x-ray that showed no evidence of broken bones, and received Tylenol and ibuprofen. I provided you with a splint which she can wear as needed for comfort and support, and you should continue to use Tylenol and ibuprofen as well as ice and elevation to manage pain and swelling. Please follow-up with your primary care provider in the next few days to discuss this visit and any symptoms that change, worsen, or persist. Thank you for allowing us to be part of your care. HPI General Date/Time Provider Initiated Documentation: 07/25/24 21:14 . Limitations to Documentation: no limitations . Information obtained by: patient and old records reviewed . HPI Narrative: HPI: This is a 68-year-old female patient with a past medical history significant for breast cancer, atrial fibrillation not on anticoagulation, cardiomyopathy, presenting for evaluation of left arm injury after fall. This morning she fell on the ice, states that she landed on her left lower abdomen/hip, and her arm flew backwards striking the ground. She did not strike her head or lose consciousness, states that she was able to get up and walk around and continue throughout her day. Initially she thought that maybe she had injured her elbow, she noticed that her elbow was not painful and she has full range of motion at this time. She was out to dinner with a friend, who moved her wrist and elicited pain, and is concerned for injury of her wrist and forearm. Prior to this event the patient was in her normal state of health, and her fall was not preceded by any dizziness, syncope, or chest pain. She has not tried any medications in the outpatient environment for management of her symptoms. Exam: Gen: Awake and alert, in no apparent distress HEENT: Non-icteric sclera, PERRL, scalp atraumatic Neck: Supple, full ROM without pain Lungs: No apparent respiratory distress, normal respiratory effort. CV: Appears well perfused Abdomen: Non-distended MSK: Moves 4 extremities without apparent limitation in ROM. The patient has tenderness to palpation over the distal forearm without significant deformity or overlying skin changes. No anatomical snuffbox tenderness, the patient has full range of motion without tenderness or deformity of the affected left shoulder, elbow, and hand. CSM's intact and symmetrical distal to this area of pain. Pelvis stable to AP compression Skin: Visualized skin without rashes, cyanosis. Neuro: Normal Gait, no obvious focal deficits or facial asymmetry. Speaks in full, clear sentences. Psych: Appropriate for situation. MDM: This is a 68-year-old female patient presenting for evaluation after injury. My differential includes but is not limited to fracture, dislocation, contusion, ligamentous injury, muscular strain. No evidence for neurovascular derangement on my physical examination. This was a mechanical fall and her history is less concerning for syncope, orthostasis, arrhythmia, and she had no evidence for seizure or stroke. The patient did not injure any other part of her body, is without any anticoagulant use to increase her risk for intracranial hemorrhage, and has been ambulatory, making pelvic fracture highly unlikely. Will provide the patient with a dose of Tylenol and ibuprofen, and obtain x-rays of the affected left forearm/wrist. ED Course: X-ray imaging negative for symptomatic shoulder dislocation, injury most concerning for contusion, soft tissue swelling. Patient has had improvement in her pain with Tylenol and ibuprofen. I did provide her with the wrist splint to use as needed for comfort. At this time, the patient has had a full medical evaluation and is safe for discharge to home. They are hemodynamically stable, ambulatory, and tolerating PO. They are understanding of the follow-up plan and return precautions. They left our facility without incident. Zeynep Guzmán MD Related Data Home Medications ?Medication ?Instructions ?Recorded ?Confirmed ibuprofen 200 mg tablet 2 cap PO PRN PRN 05/29/13 07/25/24 calcium 600 mg (as 1 ea PO BID 03/20/16 07/25/24 carbonate)-vitamin D3 10 mcg (400 unit) capsule olopatadine 0.2 % eye drops 1 drp ophthalmic (eye) BID PRN 05/20/18 07/25/24 (Pataday) aspirin 81 mg tablet,delayed 81 mg PO DAILY #60 tabs 11/03/19 07/25/24 release magnesium hydroxide 400 mg (170 mg 400 mg PO DAILY 02/25/20 07/25/24 magnesium) chewable tablet glucosamine HCl 500 mg-msm 83 See Rx Instructions PO DAILY 01/06/21 07/25/24 mg-chondroitin 400 mg tablet econazole 1 % topical cream 1 applic topical DAILY PRN tinea 08/02/22 07/25/24 pedis #85 grams sumatriptan succinate 25 mg tablet 25 - 50 mg (1 - 2 x 25 mg) PO ONCE 08/22/23 07/25/24 PRN migraine headache #60 tab-caps bisoprolol fumarate 10 mg tablet 10 mg PO DAILY #90 tabs 06/09/24 07/25/24 clotrimazole 1 % topical cream 1 applic topical BID #45 grams 06/09/24 07/25/24 (Clotrimazole AF) Previous Rx's ?Medication ?Instructions ?Recorded aspirin 81 mg tablet,delayed 81 mg PO DAILY #60 tabs 11/03/19 release econazole 1 % topical cream 1 applic topical DAILY PRN tinea 08/02/22 pedis #85 grams sumatriptan succinate 25 mg tablet 25 - 50 mg (1 - 2 x 25 mg) PO ONCE 08/22/23 PRN migraine headache #60 tab-caps bisoprolol fumarate 10 mg tablet 10 mg PO DAILY #90 tabs 06/09/24 clotrimazole 1 % topical cream 1 applic topical BID #45 grams 06/09/24 (Clotrimazole AF) Allergies Allergy/AdvReac Type Severity Reaction Status Date / Time alcohol AdvReac Unknown Lightheaded Verified 07/25/24 21:13 ness General Stated Complaint: Orthopedic GAEL: 4 Course Vital Signs Vital signs: Vital Signs Temperature 36.0 C L 07/25/24 21:09 Pulse 69 07/25/24 21:09 Respiratory Rate 18 07/25/24 21:09 Blood Pressure 167/71 H 07/25/24 21:09 Pulse Oximetry 100 07/25/24 21:09 Temperature 36.0 C L 07/25/24 21:09 Temperature Source Temporal Artery Scan 07/25/24 21:09 Pulse 69 07/25/24 21:09 Respiratory Rate 18 07/25/24 21:09 Respiratory Effort Normal, Non-Labored 07/25/24 21:13 Blood Pressure 167/71 H 07/25/24 21:09 Blood Pressure Position Sitting 07/25/24 21:09 Pulse Oximetry 100 07/25/24 21:09 Oxygen Delivery Method Room Air 07/25/24 21:09 Oxygen Flow Rate 0 07/25/24 21:09 Pain Level 7 07/25/24 21:15 Medical Decision Making Quality:SDOH Health Related Social Needs: No Data to Display PFSH All Active Problems (Updated 07/25/24 @ 22:12 by Zeynep Guzmán MD) Contusion of left wrist (Acute) Fungal nail infection (Acute) Chronic diarrhea (Acute) Nonischemic cardiomyopathy (Chronic) History of right breast cancer (Chronic 2020) DCIS s/p partial mastectomy, radiation Paroxysmal atrial fibrillation (Chronic) Frequent PVCs (Chronic) Hyperlipidemia (Chronic) Osteopenia (Chronic) Prosthetic eye globe (Chronic) Left eye Sensorineural hearing loss, bilateral (Chronic) Urinary incontinence (Chronic) 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 Overactive bladder due to prolapse of female genital organ (Chronic) Medical History Ductal carcinoma in situ (DCIS) of right breast (2019) s/p mastectomy, radiation with [facility] Cellulitis of both lower extremities Ocular herpes Surgical History Status post partial mastectomy of right breast (01/23/20) 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 Daughter No problems noted. Social History Smoking/Tobacco Use Status: Never Second Hand Exposure: No Smoking risk assessment performed?: Yes Alcohol Intake: never Drug use: Never Substance use type: does not use Caregiver/Support person: No Household members: spouse Communication Needs: None current occupation: CLINICAL PSYCHOLOGIST Pets and animals: No Sexually active: Yes Do you think of yourself as: straight/heterosexual Current gender identity: female What is your relationship status?: How often do you talk on the phone with friends or family?: three or more times per week How often do you get together with friends or relatives?: twice per week How often do you attend muslim or moravian services?: decline to answer Do you belong to any clubs or organized social groups?: yes Panel score (0-1 are the most socially isolated patients): 3 Duration: 30-45 minutes/day Frequency: daily Do you feel safe at home: Yes Do you feel safe in your relationship?: Yes Additional Social history: pt is here with family; interacts well
--- NOTE | 2024-07-25 22:09 | DI.VRAD_ITS ---
PROCEDURE INFORMATION: Exam: XR Left Wrist Exam date and time: 07/25/2024 9:29 PM Age: 68 years old Clinical indication: Other: Fall, distal forearm pain TECHNIQUE: Imaging protocol: Radiologic exam of the left wrist. Views: 3 or more views. COMPARISON: No relevant prior studies available. FINDINGS: Bones/joints: No visible fracture or dislocation Soft tissues: Moderate soft tissue edema. IMPRESSION: Moderate soft tissue edema. Dictated and Authenticated by: Vanda Valle MD. Ordering:RUBY Sharp MD
[2024-07-25 22:18] VITALS: BP 124/49; PULSE 53; RESP 14; TEMP 36.3; O2SAT 99
== END 2024-07-25 22:18 | disposition home or self-care (01) ==
PROVIDERS: Emergency Provider Emergency Medicine; PCP Nurse Practitioner Family
DX: S60.212A Contusion of left wrist, initial encounter (principal); W00.9XXA Unspecified fall due to ice and snow, initial encounter; I48.0 Paroxysmal atrial fibrillation; E78.5 Hyperlipidemia, unspecified; I42.8 Other cardiomyopathies; I5A Non-ischemic myocardial injury (non-traumatic); Z85.3 Personal history of malignant neoplasm of breast
CPT/HCPCS: 99283; 73110

== ENCOUNTER 2024-11-25 10:44 | Outpatient (CLI) | payer MEDICARE, SELFPAY ==
--- NOTE | 2024-11-25 10:45 | RT.EKG_ITS ---
APPROVED REPORT Exam: Resting ECG Reason for Exam: Follow up Patient Location: O HR:55 bpm ECG Measurements Heart Rate 55 AXIS CA 178 P 52 QRSd 103 QRS 21 QT 424 T 38 QTc 406 Conclusion Sinus rhythm...normal P axis, V-rate 50- 99 Normal Electrocardiogram
== END 2024-11-25 10:45 | disposition home or self-care (01) ==
LOC: DI.CARD 10:48
PROVIDERS: PCP Nurse Practitioner Family; Visit Provider Internal Medicine Cardiovascular Disease
DX: I42.8 Other cardiomyopathies (principal); I48.0 Paroxysmal atrial fibrillation; I49.3 Ventricular premature depolarization
CPT/HCPCS: 93010

== ENCOUNTER → 2024-11-25 10:44 | Outpatient (BNVA) | payer MEDICARE, SELFPAY | PROVIDERS: PCP Nurse Practitioner Family; Referring Provider Nurse Practitioner Family; Visit Provider Internal Medicine Cardiovascular Disease | DX: I42.8 Other cardiomyopathies (principal); I49.3 Ventricular premature depolarization | CPT/HCPCS: 93005; 99213 ==

== ENCOUNTER 2024-12-01 03:13 | Outpatient (CLI) | payer MEDICARE, SELFPAY ==
[2024-12-01 07:52] LABS: Anion Gap 6.3 mmol/L (3-11); BUN 11 mg/dL (7-18); CO2 31.7 mmol/L (21.0-32.0); CREATININE 0.8 mg/dL (0.55-1.02); Calculated LDL 109 mg/dL (<100); Chloride 109 mmol/L (98-107); Cholesterol 183 mg/dL (<200); Estimated GFR 79.22 (mL/min/1.73m2); Glucose 92 mg/dL (74-106); HDL Cholesterol 67 mg/dL (>or=50); Potassium 3.9 mmol/L (3.5-5.1); Sodium 147 mmol/L (136-145); Triglyceride 38 mg/dL (<150)
== END 2024-12-01 03:14 | disposition home or self-care (01) ==
LOC: LBO 03:13
PROVIDERS: PCP Nurse Practitioner Family; Visit Provider Nurse Practitioner Family
DX: I42.8 Other cardiomyopathies (principal); E78.5 Hyperlipidemia, unspecified
CPT/HCPCS: 36415; 80048; 80061

== ENCOUNTER 2024-12-11 02:23 | Outpatient (CLI) | payer MEDICARE, SELFPAY ==
[2024-12-11 14:34] LABS: Anion Gap 6.4 mmol/L (3-11); BUN 19 mg/dL (7-18); CO2 31.6 mmol/L (21.0-32.0); CREATININE 0.8 mg/dL (0.55-1.02); Calcium 9.1 mg/dL (8.5-10.1); Chloride 109 mmol/L (98-107); Estimated GFR 79.22 (mL/min/1.73m2); Glucose 94 mg/dL (74-106); Potassium 4.1 mmol/L (3.5-5.1); Sodium 147 mmol/L (136-145)
== END 2024-12-11 02:24 | disposition home or self-care (01) ==
LOC: LBO 02:23
PROVIDERS: PCP Nurse Practitioner Family; Visit Provider Nurse Practitioner Family
DX: E87.0 Hyperosmolality and hypernatremia (principal)
CPT/HCPCS: 36415; 80048